=== PATIENT | female | born 1945 | race Caucasian/White ===

== ENCOUNTER 2017-10-22 23:06 | Inpatient (IN) | payer MEDICAID, MEDICARE ==
[~2017-10-22] VITALS: Ht 154.9 cm; Wt 45.4 kg
--- NOTE | 2017-10-22 23:28 | ED.ADGEN ---
Past History Past Medical History: Anxiety, Cancer, Dementia, Seizure, Other Adult General Chief Complaint Chief Complaint " I still hurt from when I fell..weeks ago... My Rt. hip, Lt. knee, Lt. elbow... and now I ve got a chest and head cold... the place I am at... everyone is sick... and they are peeing on the floor or shitting on the floor.. I am not kidding.." HPI HPI Patient is a 71 year old female transfer from [facility] who presents with hx. of increase in disruptive behaviors, mental status change, aggressive behavior- striking staff and other pt.s, pt. refusing meds, throws self on the floor, increased hallucinations, and "sundowning". Pt. had recent fall and complaints of injury to Lt elbow, Lt. knee and Rt hip. Pt also reports increased rhinorrhea and cough. Pt. has hx of chronic dementia, Lewy-body, leukemia- B-cell in remission, dysphagia, falls, seizure disorder, anxiety, deconditioning, chronic constipation, polyneuropathy, osteoporosis, GERD, Gait and mobility disfunction, COPD and parkinson's. Pt. Follows with Dr. Tobias for primary. Pt. POA is Daughter- Verena at [phone], or [phone]. Review of Systems Review of Systems Constitutional: Denies fever or chills [] Eyes: Denies change in visual acuity, redness, or eye pain [] HENT: Denies nasal congestion or sore throat [] Respiratory: Denies cough or shortness of breath [] Cardiovascular: No additional information not addressed in HPI [] GI: Denies abdominal pain, nausea, vomiting, bloody stools or diarrhea [] : Denies dysuria or hematuria [] Musculoskeletal: Lt shoulder, Rt shoulder, Lt hip, Lt knee joint pain [] Integument: Denies rash or skin lesions [] Neurologic: Denies headache, focal weakness or sensory changes [] Endocrine: Denies polyuria or polydipsia [] All other systems were reviewed and found to be within normal limits, except as documented in this note. Family History Family History Not currently available Current Medications Current Medications Current Medications Medications (Trade) Dose Ordered Sig/Wojciech Start Time Stop Time Status Last Admin Dose Admin Ceftriaxone Sodium 1 gm/ Sodium Chloride 50 ml @ 100 mls/hr 1X ONCE 10/23/17 01:30 10/23/17 01:59 DC 10/23/17 01:19 100 MLS/HR Ceftriaxone Sodium (Rocephin) 1 gm STK-MED ONCE 10/23/17 01:12 10/23/17 01:13 DC Sodium Chloride 50 ml @ As Directed STK-MED ONCE 10/23/17 01:12 10/23/17 01:13 DC Allergies Allergies Allergies Coded Allergies Type Severity Reaction Last Updated Verified No Known Drug Allergies 10/23/17 No Physical Exam Physical Exam Constitutional:in no acute distress, non-toxic appearance. [] HENT: Normocephalic, atraumatic, bilateral external ears normal, oropharynx moist, no oral exudates, nose normal. [] Eyes: PERRLA, EOMI, conjunctiva normal, no discharge. [] Neck: Normal range of motion, no tenderness, supple, no stridor. [] Cardiovascular:Heart rate regular rhythm, no murmur . PMI to Lt. Lungs & Thorax: Bilateral breath sounds equal apex with scattered wheezes on auscultation [] Abdomen: Bowel sounds normal, soft, no tenderness, no masses, no pulsatile masses. Scar. Skin: Warm, dry, no erythema, no rash. Poor turgor. Back: No tenderness, no CVA tenderness. [] Extremities: Shoulders, left knee tenderness, hips, tender to palpation, no cyanosis, no clubbing, ROM intact, no edema. [ Arthritic changes. Neurologic: Alert and oriented X 3, normal motor function, normal sensory function, no focal deficits noted. [] Psychologic: Affect anxious, judgement appears impaired, mood depressed, angry. Current Patient Data Vital Signs Vital Signs Date Time Temp Pulse Resp B/P (MAP) Pulse Ox O2 Delivery O2 Flow Rate FiO2 10/22/17 23:06 97.7 67 16 98 Room Air Lab Results Laboratory Tests Test 10/22/17 23:36 10/22/17 23:49 10/23/17 00:54 Urine Collection Type Unknown Urine Color Yellow Urine Clarity Cloudy Urine pH 6.5 Urine Specific [place] 1.020 Urine Protein 100 mg/dl (NEG-TRACE) Urine Glucose (UA) Neg mg/dL (NEG) Urine Ketones (Stick) Neg mg/dL (NEG) Urine Blood Mod (NEG) Urine Nitrite Pos (NEG) Urine Bilirubin Neg (NEG) Urine Urobilinogen Dipstick 0.2 mg/dL (0.2 mg/dL) Urine Leukocyte Esterase Large (NEG) Urine RBC 6-10 /HPF (0-2) Urine WBC Tntc /HPF (0-4) Urine Squamous Epithelial Cells Few /LPF Urine Bacteria Many /HPF (0-FEW) Urine Opiates Screen Neg (NEG) Urine Methadone Screen Neg (NEG) Urine Barbiturates Neg (NEG) Urine Phencyclidine Screen Neg (NEG) Urine Amphetamine/Methamphetamine Neg (NEG) Urine Benzodiazepines Screen Neg (NEG) Urine Cocaine Screen Neg (NEG) Urine Cannabinoids Screen Neg (NEG) Urine Ethyl Alcohol Neg (NEG) Influenza Type A (Rapid) Negative (NEGATIVE) Influenza Type B (Rapid) Negative (NEGATIVE) Group A Streptococcus Rapid Negative (NEGATIVE) White Blood Count 15.0 x10^3/uL (4.0-11.0) H Red Blood Count 2.88 x10^6/uL (3.50-5.40) L Hemoglobin 9.7 g/dL (12.0-15.5) L Hematocrit 28.5 % (36.0-47.0) L Mean Corpuscular Volume 99 fL (79-100) Mean Corpuscular Hemoglobin 34 pg (25-35) Mean Corpuscular Hemoglobin Concent 34 g/dL (31-37) Red Cell Distribution Width 15.6 % (11.5-14.5) H Platelet Count 357 x10^3/uL (140-400) Neutrophils (%) (Auto) 18 % (31-73) L Lymphocytes (%) (Auto) 65 % (24-48) H Monocytes (%) (Auto) 15 % (0-9) H Eosinophils (%) (Auto) 1 % (0-3) Basophils (%) (Auto) 1 % (0-3) Neutrophils # (Auto) 2.6 x10^3uL (1.8-7.7) Lymphocytes # (Auto) 9.7 x10^3/uL (1.0-4.8) H Monocytes # (Auto) 2.2 x10^3/uL (0.0-1.1) H Eosinophils # (Auto) 0.2 x10^3/uL (0.0-0.7) Basophils # (Auto) 0.2 x10^3/uL (0.0-0.2) Segmented Neutrophils % 12 % (35-66) L Band Neutrophils % 1 % (0-9) Lymphocytes % 74 % (24-48) H Monocytes % 11 % (0-10) H Basophils % 2 % (0-3) Platelet Estimate Adequate (ADEQUATE) Prothrombin Time 10.4 SEC (9.4-11.4) Prothrombin Time INR 1.0 (0.9-1.1) PTT 25 SEC (23-33) Sodium Level 134 mmol/L (136-145) L Potassium Level 4.1 mmol/L (3.5-5.1) Chloride Level 100 mmol/L (98-107) Carbon Dioxide Level 27 mmol/L (21-32) Anion Gap 7 (6-14) Blood Urea Nitrogen 15 mg/dL (7-20) Creatinine 0.7 mg/dL (0.6-1.0) Estimated GFR (Cockcroft-Gault) 82.5 Glucose Level 99 mg/dL (70-99) Calcium Level 8.9 mg/dL (8.5-10.1) Magnesium Level 2.0 mg/dL (1.8-2.4) Total Bilirubin 0.2 mg/dL (0.2-1.0) Direct Bilirubin 0.1 mg/dL (0.0-0.2) Aspartate Amino Transferase (AST) 36 U/L (15-37) Alanine Aminotransferase (ALT) 30 U/L (14-59) Alkaline Phosphatase 72 U/L (46-116) Ammonia < 10 mcmol/L (11-34) L Creatine Kinase 205 U/L (26-192) H Creatine Kinase MB (Mass) 5.2 ng/mL (0.0-3.6) H Creatine Kinase MB Relative Index 2.5 % (0-4) Troponin I Quantitative < 0.017 ng/mL (0-0.055) UD-Ekg-L-Type Natriuretic Peptide 586 pg/mL (0-124) H Total Protein 8.0 g/dL (6.4-8.2) Albumin 2.9 g/dL (3.4-5.0) L EKG EKG I interpretation of EKG shows a sinus rhythm at 73 bpm. Does have occasional PVC and PAC.[] Radiology/Procedures Radiology/Procedures I interpretation of chest x-ray and shoulder left elbow and left knee and pelvis showed degenerative joint changes, but no obvious fracture dislocation COPD changes on chest x-ray. []CT of head shows no shift, mass, edema, bleed, or fracture. Does have small vessel disease changes and atrophy Course & Med Decision Making Course & Med Decision Making Pertinent Labs and Imaging studies reviewed. (See chart for details). Does presentation, testing and treatment plan with Dr. Avalos. Will follow medical issues. Admit to Dr. Barrera. - [facility]. [] Final Impression Final Impression 1. Mental Status change 2. Parkinson's 3. Dementia - Lewy Body 4. Aggressive Behavior 5. Urinary tract infection 6. Leukocytosis 7. Anemia Problems: Dragon Disclaimer Dragon Disclaimer This electronic medical record was generated, in whole or in part, using a voice recognition dictation system. MARTINE LOPEZ MD Oct 22, 2017 23:28
--- NOTE | 2017-10-23 00:09 | EKG ---
[address] [address] Test Date: 2017-10-23 Test Time: 00:00:52 Pat Name: QUINTIN STALLINGS Department: Room: Gender: F Keypuncher: ANISHA : 1945 Requested By: MARTINE LOPEZ Order Number: [id number] Reading MD: Jacky Perez MD Measurements Intervals [place] Rate: 73 P: -4 MI: 178 QRS: 62 QRSD: 76 T: 54 QT: 366 QTc: 407 Interpretive Statements SINUS RHYTHM PVC Electronically Signed On 10-29-2017 14:12:55 ORACLE DBA by Jacky Perez MD
[2017-10-23] MEDS ORDERED: SENN1TAB15 PO (00:26)
[2017-10-23] MEDS ORDERED: OXYC5TAB95 PO ×2 (00:26)
[2017-10-23] MEDS ORDERED: KETO5DRO72 EACHEYE (00:26)
[2017-10-23] MEDS ORDERED: CYAN10005 PO (00:26)
[2017-10-23] MEDS ORDERED: CLON0.5T3 PO ×2 (00:26)
[2017-10-23] MEDS ORDERED: NALO25TA PO (00:26)
[2017-10-23] MEDS ORDERED: CARB1TAB47 PO (00:26)
[2017-10-23] MEDS ORDERED: CALC1TAB75 PO (00:26)
[2017-10-23] MEDS ORDERED: PANT40TA5 PO (00:26)
[2017-10-23] MEDS ORDERED: ASPI-630 PO (00:26)
[2017-10-23] MEDS ORDERED: QUET50TA5 PO (00:26)
[2017-10-23] MEDS ORDERED: ACET500T68 PO (00:26)
[2017-10-23] MEDS ORDERED: BUDE10.2 IH (00:26)
[2017-10-23] MEDS ORDERED: DICL100G18 TP (00:26)
[2017-10-23] MEDS ORDERED: RISE35TA3 PO (00:26)
[2017-10-23] MEDS ORDERED: LEVE500T6 PO (00:26)
[2017-10-23] MEDS ORDERED: ONDA4TAB11 PO (00:26)
[2017-10-23] MEDS ORDERED: DONE5TAB7 PO (00:26)
[2017-10-23] MEDS ORDERED: QUET25TA5 PO ×2 (00:26)
[2017-10-23] MEDS ORDERED: DULO30CA2 PO (00:26)
[2017-10-23] MEDS ORDERED: PREG50CA PO (00:26)
[2017-10-23] MEDS ORDERED: LORA2VIA IM (00:26)
[2017-10-23] MEDS ORDERED: ENTA200T2 PO (00:26)
[2017-10-23 00:32] LABS: BARBITURATES NEG (NEG); BENZODIAZEPINES NEG (NEG); CANNABINOIDS NEG (NEG); COCAINE NEG (NEG); METHADONE NEG (NEG); OPIATES NEG (NEG); PHENCYCLIDINE NEG (NEG)
[2017-10-23 00:35] LABS: AMPHETAMINE/METHAMPHETAMINE NEG (NEG)
[2017-10-23 00:38] LABS: BACTERIA,URINE MANY /HPF (0-FEW); BILIRUBIN,URINE NEG (NEG); CLARITY,URINE CLOUDY; COLOR,URINE YELLOW; GLUCOSE,URINE NEG (NEG); NITRITE,URINE POS (NEG); SQUAMOUS EPITHELIAL CELL,UR FEW /LPF; UROBILINOGEN,URINE 0.2 mg/dL (0.2 mg/dL); WBC,URINE TNTC /HPF (0-4)
[2017-10-23 00:46] LABS: INFLUENZA A PATIENT NEGATIVE (NEGATIVE); INFLUENZA B PATIENT NEGATIVE (NEGATIVE)
[2017-10-23] MEDS ORDERED: cefTRIAXone SODIUM 1 GM VIAL IV ONE (01:12)
[2017-10-23] MEDS ORDERED: IV NORMAL SALINE 50ML 50 ML ONE (01:12)
[2017-10-23 01:22] LABS: BASO # 0.2 x10^3/uL (0.0-0.2); BASO % 1 % (0-3); EOS # 0.2 x10^3/uL (0.0-0.7); EOS % 1 % (0-3); HEMATOCRIT 28.5 % (36.0-47.0); HEMOGLOBIN 9.7 g/dL (12.0-15.5); LYMPH # 9.7 x10^3/uL (1.0-4.8); LYMPH % 65 % (24-48); MEAN CORPUSCULAR HEMOGLOBIN 34 pg (25-35); MEAN CORPUSCULAR HGB CONC 34 g/dL (31-37); MEAN CORPUSCULAR VOLUME 99 fL (79-100); MONO # 2.2 x10^3/uL (0.0-1.1); MONO % 15 % (0-9); NEUT # 2.6 x10^3uL (1.8-7.7); NEUT % 18 % (31-73); PLATELET COUNT 357 x10^3/uL (140-400); RED BLOOD COUNT 2.88 x10^6/uL (3.50-5.40); RED CELL DISTRIBUTION WIDTH 15.6 % (11.5-14.5)
--- NOTE | 2017-10-23 01:32 | RAD ---
CT scan of the head without contrast 10/23/2017 Clinical History: Fall with head trauma. Technique: Unenhanced, contiguous, 5 mm axial sections were obtained through the head. One or more of the following individualized dose reduction techniques were utilized for this study: 1. Automated exposure control. 2. Adjustment of the mA and/or kV according to patient size. 3. Use of iterative reconstruction technique. Findings: No previous imaging studies are available for comparison. There is generalized parenchymal atrophy. Areas of decreased attenuation are seen within the periventricular and subcortical white matter of both cerebral hemispheres consistent with areas of small vessel ischemic disease. No acute parenchymal abnormality is seen. No extra-axial fluid collection is noted. No skull fracture is seen. Impression: No acute intracranial abnormality is seen. CT scan of the cervical spine without contrast 10/23/2017 Clinical history: Fall with neck injury. Technique: Unenhanced, contiguous, 0.625 mm axial sections were obtained through the cervical spine. Axial, coronal and sagittal reconstructed images were obtained. One or more of the following individualized dose reduction techniques were utilized for this study: 1. Automated exposure control. 2. Adjustment of the mA and/or kV according to patient size. 3. Use of iterative reconstruction technique. Findings: Sagittal and coronal reconstructed images demonstrate minimal lateral curvature of the cervical spine convex to the left. There is slight reversal of the normal cervical lordosis. Degenerative changes consisting of varying degrees of disc space narrowing, vertebral endplate sclerosis and mild anterior and posterior vertebral body osteophyte formation are seen throughout the cervical disc spaces. No fracture or subluxation of the cervical vertebrae is seen. Degenerative changes are seen involving the uncovertebral and facet joints throughout the cervical disc spaces. Impression: No fracture or subluxation of the cervical vertebra is identified. Electronically signed by: Js La MD (10/23/2017 1:29 AM) [facility]
[2017-10-23 01:46] LABS: CALCIUM 8.9 mg/dL (8.5-10.1); CREATININE 0.7 mg/dL (0.6-1.0); GFR 82.5; POTASSIUM 4.1 mmol/L (3.5-5.1)
[2017-10-23 01:57] LABS: % BANDS 1 % (0-9); % BASOS 2 % (0-3); % LYMPHS 74 % (24-48); % MONOS 11 % (0-10); % SEGS 12 % (35-66)
[2017-10-23 01:58] LABS: PLT ESTIMATE ADEQUATE (ADEQUATE)
[2017-10-23 03:15] VITALS: BP 148/75
[2017-10-23] MEDS ORDERED: METHYL SALICYLATE/MENTHOL TOPICAL OINTMENT 29GM TUBE. TP PRN (03:15)
[2017-10-23] MEDS ORDERED: MAGNESIUM HYDROXIDE 2,400 MG/30 ML ORAL.SUSP. PO PRN (03:15)
[2017-10-23] MEDS ORDERED: ACETAMINOPHEN 325 MG TABLET PO PRN (03:15)
[2017-10-23] MEDS ORDERED: MAG HYDROX/AL HYDROX/SIMETH 30 ML ORAL.SUSP PO PRN (03:15)
[2017-10-23] MEDS ORDERED: clonazePAM 0.5 MG TABLET PO PRN (03:30)
[2017-10-23 03:58] LABS: ALBUMIN 2.9 g/dL (3.4-5.0); TOTAL BILIRUBIN 0.2 mg/dL (0.2-1.0)
[2017-10-23 05:19] LABS: DIRECT BILIRUBIN 0.1 mg/dL (0.0-0.2)
[2017-10-23 06:14] VITALS: BP 148/75
--- NOTE | 2017-10-23 07:14 | RAD ---
Indication: Bilateral hip pain, greater on the right. Fall. Technique: AP pelvis and lateral view of each hip are submitted for review. No comparison is available. Findings: There is no pelvic fracture. There is no fracture or dislocation of either hip. Impression: Negative for fracture.
--- NOTE | 2017-10-23 07:18 | RAD ---
Indication: Pain after a fall. Technique: Bilateral shoulder series contains 3 views. 2 views of each of the shoulders are with large [id number]. Findings: There is no fracture or dislocation. There is no osseous lesion. Impression: Negative for fracture.
--- NOTE | 2017-10-23 07:19 | RAD ---
Indication: Elbow pain after a fall. Technique: 2 views of the left elbow are submitted for review. No comparison is available. Findings: There is no fracture or dislocation. There is no joint effusion/displacement of fat pads. Impression: Negative for fracture
--- NOTE | 2017-10-23 07:19 | RAD ---
Indication: Knee pain after a fall. Technique: 3 views of the left knee are submitted for review. No comparison is available. Findings: There is no fracture or dislocation. There is no joint effusion or soft tissue swelling. Impression: Negative for fracture.
--- NOTE | 2017-10-23 07:21 | RAD ---
Indication: Fall, pain. Technique: Upright portable chest radiograph was obtained. No comparison is available. Findings: The lungs are clear. There is a calcified granuloma on the right. Heart is upper limits of normal in size. There is no heart failure. There is minimal atheromatous disease in the thoracic aorta. Impression: No acute thoracic findings.
[2017-10-23] MEDS ORDERED: DICLOFENAC SODIUM 1% TOPICAL GEL 100GM TUBE. TP PRN (08:30)
[2017-10-23] MEDS ORDERED: NALOXEGOL OXALATE 25 MG TABLET. PO PRN (08:30)
[2017-10-23] MEDS ORDERED: oxyCODONE IR 5 MG TABLET PO PRN (08:30)
[2017-10-23] MEDS ORDERED: ACETAMINOPHEN 500 MG TABLET PO PRN (08:30)
[2017-10-23] MEDS ORDERED: KETOROLAC TROMETHAMINE 0.5% OPHTH SOLUTION 3ML BOTTLE. OU PRN ×2 (08:45→14:36)
[2017-10-23] MEDS ORDERED: ONDANSETRON ODT 4 MG TAB.RAPDIS PO PRN (08:45)
[2017-10-23] MEDS: SENNOSIDES/DOCUSATE 8.6/50MG TABLET. PO SCH ×3 (09:00→20:40)
[2017-10-23] MEDS ORDERED: NON FORMULARY ITEM (Budesonide/Formoterol Fumarate (Symbicort 160-4.5 Mcg Inhaler) 2 PUFF) IH SCH (09:00)
[2017-10-23] MEDS: CARBIDOPA/LEVODOPA 25/100MG TABLET PO SCH ×5 (09:00→22:15)
[2017-10-23] MEDS: ENTACAPONE 200 MG TABLET PO SCH ×5 (09:00→22:14)
[2017-10-23] MEDS: PREGABALIN 50 MG CAPSULE PO SCH ×4 (09:00→21:00)
[2017-10-23 09:32] LABS: BASO # 0.1 x10^3/uL (0.0-0.2); BASO % 1 % (0-3); EOS # 0.3 x10^3/uL (0.0-0.7); EOS % 2 % (0-3); HEMATOCRIT 30.1 % (36.0-47.0); HEMOGLOBIN 10.1 g/dL (12.0-15.5); LYMPH # 7.5 x10^3/uL (1.0-4.8); LYMPH % 60 % (24-48); MEAN CORPUSCULAR HEMOGLOBIN 33 pg (25-35); MEAN CORPUSCULAR HGB CONC 34 g/dL (31-37); MEAN CORPUSCULAR VOLUME 99 fL (79-100); MONO # 2.1 x10^3/uL (0.0-1.1); MONO % 17 % (0-9); NEUT # 2.5 x10^3uL (1.8-7.7); NEUT % 20 % (31-73); PLATELET COUNT 341 x10^3/uL (140-400); RED BLOOD COUNT 3.05 x10^6/uL (3.50-5.40); RED CELL DISTRIBUTION WIDTH 15.6 % (11.5-14.5); WHITE BLOOD COUNT 12.5 x10^3/uL (4.0-11.0)
[2017-10-23 09:51] LABS: ALBUMIN 2.7 g/dL (3.4-5.0); ALBUMIN/GLOBULIN RATIO 0.5 (1.0-1.7); CALCIUM 9.1 mg/dL (8.5-10.1); CREATININE 0.8 mg/dL (0.6-1.0); GFR 70.7; POTASSIUM 4.1 mmol/L (3.5-5.1); TOTAL BILIRUBIN 0.2 mg/dL (0.2-1.0); TOTAL PROTEIN 7.7 g/dL (6.4-8.2)
[2017-10-23] MEDS ORDERED: ALBUTEROL SULFATE 2.5 MG/3 ML NEBU. ONE (10:10)
[2017-10-23] MEDS ORDERED: BUDESONIDE 0.5 MG/2 ML NEBU ONE (10:10)
[2017-10-23] MEDS: levETIRAcetam 500 MG TABLET PO SCH ×2 (11:42→20:41)
[2017-10-23] MEDS: SMZ/TMP 800/160MG TABLET. PO SCH ×3 (11:42→22:13)
[2017-10-23] MEDS: QUEtiapine 25 MG TABLET. PO SCH ×2 (11:43→18:00)
[2017-10-23] MEDS: CYANOCOBALAMIN (VITAMIN B-12) 1,000 MCG TABLET. PO SCH (11:43)
[2017-10-23] MEDS: ASPIRIN 81 MG TAB.CHEW PO SCH (11:43)
[2017-10-23] MEDS: PANTOPRAZOLE 40 MG TABLET. PO SCH ×3 (11:44→22:14)
[2017-10-23] MEDS: CALCIUM CARB/VIT D3 500/200 TABLET PO SCH (11:44)
[2017-10-23] MEDS: oxyCODONE IR 5 MG TABLET PO SCH ×2 (11:45→22:15)
[2017-10-23] MEDS: BUDESONIDE 0.5 MG/2 ML NEBU NEB SCH ×2 (12:00→20:00)
[2017-10-23] MEDS: ALBUTEROL SULFATE 2.5 MG/3 ML NEBU. NEB SCH ×2 (12:00→21:04)
[2017-10-23 16:23] VITALS: BP 110/54
[2017-10-23] MEDS ORDERED: traZODone 50 MG TABLET. PO PRN (19:15)
--- NOTE | 2017-10-23 20:03 | PDOC ---
Exam Note: Jermaine Note: Please also refer to the separate dictated note~for this date of service dictated separately.~Patient seen individually. Discussed the patient with Nursing staff reviewed the chart.~Reviewed interim history and current functioning. Reviewed vital signs,~Labs/ Radiology~and current medications noted below. Continue current treatment with the changes noted in the dictated addendum note Assessment: Vital Signs: Vital Signs Date Time Temp Pulse Resp B/P (MAP) Pulse Ox O2 Delivery O2 Flow Rate FiO2 10/23/17 16:23 98.6 84 16 110/54 (72) 99 10/23/17 13:11 Room Air Labs: Laboratory Tests Test 10/22/17 23:36 10/22/17 23:49 10/23/17 00:54 10/23/17 09:10 Urine Collection Type Unknown Urine Color Yellow Urine Clarity Cloudy Urine pH 6.5 Urine Specific [place] 1.020 Urine Protein 100 mg/dl (NEG-TRACE) Urine Glucose (UA) Neg mg/dL (NEG) Urine Ketones (Stick) Neg mg/dL (NEG) Urine Blood Mod (NEG) Urine Nitrite Pos (NEG) Urine Bilirubin Neg (NEG) Urine Urobilinogen Dipstick 0.2 mg/dL (0.2 mg/dL) Urine Leukocyte Esterase Large (NEG) Urine RBC 6-10 /HPF (0-2) Urine WBC Tntc /HPF (0-4) Urine Squamous Epithelial Cells Few /LPF Urine Bacteria Many /HPF (0-FEW) Urine Opiates Screen Neg (NEG) Urine Methadone Screen Neg (NEG) Urine Barbiturates Neg (NEG) Urine Phencyclidine Screen Neg (NEG) Urine Amphetamine/Methamphetamine Neg (NEG) Urine Benzodiazepines Screen Neg (NEG) Urine Cocaine Screen Neg (NEG) Urine Cannabinoids Screen Neg (NEG) Urine Ethyl Alcohol Neg (NEG) Influenza Type A (Rapid) Negative (NEGATIVE) Influenza Type B (Rapid) Negative (NEGATIVE) Group A Streptococcus Rapid Negative (NEGATIVE) White Blood Count 15.0 x10^3/uL (4.0-11.0) H 12.5 x10^3/uL (4.0-11.0) H Red Blood Count 2.88 x10^6/uL (3.50-5.40) L 3.05 x10^6/uL (3.50-5.40) L Hemoglobin 9.7 g/dL (12.0-15.5) L 10.1 g/dL (12.0-15.5) L Hematocrit 28.5 % (36.0-47.0) L 30.1 % (36.0-47.0) L Mean Corpuscular Volume 99 fL (79-100) 99 fL (79-100) Mean Corpuscular Hemoglobin 34 pg (25-35) 33 pg (25-35) Mean Corpuscular Hemoglobin Concent 34 g/dL (31-37) 34 g/dL (31-37) Red Cell Distribution Width 15.6 % (11.5-14.5) H 15.6 % (11.5-14.5) H Platelet Count 357 x10^3/uL (140-400) 341 x10^3/uL (140-400) Neutrophils (%) (Auto) 18 % (31-73) L 20 % (31-73) L Lymphocytes (%) (Auto) 65 % (24-48) H 60 % (24-48) H Monocytes (%) (Auto) 15 % (0-9) H 17 % (0-9) H Eosinophils (%) (Auto) 1 % (0-3) 2 % (0-3) Basophils (%) (Auto) 1 % (0-3) 1 % (0-3) Neutrophils # (Auto) 2.6 x10^3uL (1.8-7.7) 2.5 x10^3uL (1.8-7.7) Lymphocytes # (Auto) 9.7 x10^3/uL (1.0-4.8) H 7.5 x10^3/uL (1.0-4.8) H Monocytes # (Auto) 2.2 x10^3/uL (0.0-1.1) H 2.1 x10^3/uL (0.0-1.1) H Eosinophils # (Auto) 0.2 x10^3/uL (0.0-0.7) 0.3 x10^3/uL (0.0-0.7) Basophils # (Auto) 0.2 x10^3/uL (0.0-0.2) 0.1 x10^3/uL (0.0-0.2) Segmented Neutrophils % 12 % (35-66) L Band Neutrophils % 1 % (0-9) Lymphocytes % 74 % (24-48) H Monocytes % 11 % (0-10) H Basophils % 2 % (0-3) Platelet Estimate Adequate (ADEQUATE) Prothrombin Time 10.4 SEC (9.4-11.4) Prothrombin Time INR 1.0 (0.9-1.1) PTT 25 SEC (23-33) Sodium Level 134 mmol/L (136-145) L 138 mmol/L (136-145) Potassium Level 4.1 mmol/L (3.5-5.1) 4.1 mmol/L (3.5-5.1) Chloride Level 100 mmol/L (98-107) 103 mmol/L (98-107) Carbon Dioxide Level 27 mmol/L (21-32) 26 mmol/L (21-32) Anion Gap 7 (6-14) 9 (6-14) Blood Urea Nitrogen 15 mg/dL (7-20) 13 mg/dL (7-20) Creatinine 0.7 mg/dL (0.6-1.0) 0.8 mg/dL (0.6-1.0) Estimated GFR (Cockcroft-Gault) 82.5 70.7 Glucose Level 99 mg/dL (70-99) 110 mg/dL (70-99) H Calcium Level 8.9 mg/dL (8.5-10.1) 9.1 mg/dL (8.5-10.1) Magnesium Level 2.0 mg/dL (1.8-2.4) 2.0 mg/dL (1.8-2.4) Iron Level 45 ug/dL (50-170) L Total Iron Binding Capacity 279 ug/dL (250-450) Iron Saturation 16 % (15-34) Total Bilirubin 0.2 mg/dL (0.2-1.0) 0.2 mg/dL (0.2-1.0) Direct Bilirubin 0.1 mg/dL (0.0-0.2) Aspartate Amino Transferase (AST) 36 U/L (15-37) 31 U/L (15-37) Alanine Aminotransferase (ALT) 30 U/L (14-59) 26 U/L (14-59) Alkaline Phosphatase 72 U/L (46-116) 70 U/L (46-116) Ammonia < 10 mcmol/L (11-34) L Creatine Kinase 205 U/L (26-192) H Creatine Kinase MB (Mass) 5.2 ng/mL (0.0-3.6) H Creatine Kinase MB Relative Index 2.5 % (0-4) Troponin I Quantitative < 0.017 ng/mL (0-0.055) [id number]-Type Natriuretic Peptide 586 pg/mL (0-124) H Total Protein 8.0 g/dL (6.4-8.2) 7.7 g/dL (6.4-8.2) Albumin 2.9 g/dL (3.4-5.0) L 2.7 g/dL (3.4-5.0) L Triglycerides Level 57 mg/dL (0-150) Cholesterol Level 183 mg/dL (0-200) LDL Cholesterol, Calculated 112 mg/dL (0-100) H VLDL Cholesterol, Calculated 11 mg/dL (0-40) Non-HDL Cholesterol Calculated 123 mg/dL (0-129) HDL Cholesterol 60 mg/dL (40-60) Cholesterol/HDL Ratio 3.0 Vitamin B12 Level 640 pg/mL (247-911) 25-Hydroxy Vitamin D Total 18.6 ng/mL (30-100) L Thyroid Stimulating Hormone (TSH) 4.230 uIU/mL (0.358-3.740) BUN/Creatinine Ratio 16 (6-20) Albumin/Globulin Ratio 0.5 (1.0-1.7) L Current Medications: Meds: Current Medications Ceftriaxone Sodium 1 gm/ Sodium Chloride 50 ml @ 100 mls/hr 1X ONCE IV Last administered on 10/23/17t 01:19; Start 10/23/17 at 01:30; Stop 10/23/17 at 01 :59; Status DC Sodium Chloride 50 ml @ As Directed STK-MED ONCE .ROUTE ; Start 10/23/17 at 01: 12; Stop 10/23/17 at 01:13; Status DC Ceftriaxone Sodium (Rocephin) 1 gm STK-MED ONCE IV ; Start 10/23/17 at 01:12; Stop 10/23/17 at 01:13; Status DC Acetaminophen (Tylenol) 650 mg PRN Q6HRS PRN PO PAIN / TEMP; Start 10/23/17 at 03:15; Status Cancel Multi-Ingredient Ointment (Analgesic Horner) 1 ananth PRN QID PRN TP MUSCLE PAIN; Start 10/23/17 at 03:15 Al Hydroxide/Mg Hydroxide (Mylanta Plus Xs) 15 ml PRN AFTMEALHC PRN PO DYSPEPSIA; Start 10/23/17 at 03:15 Magnesium Hydroxide (Milk Of Magnesia) 2,400 mg PRN QHS PRN PO CONSTIPATION Last administered on 10/23/17 11:42; Start 10/23/17 at 03:15 Clonazepam (KlonoPIN) 0.25 mg PRN DAILY PRN PO ANXIETY / AGITATION; Start at 03:30 Clonazepam (KlonoPIN) 0.25 mg QHS PO ; Start 10/23/17 at 21:00 Donepezil HCl (Aricept) 5 mg QHS PO ; Start 10/23/17 at 21:00; Stop 10/23/17 at 21:00; Status DC Duloxetine HCl (Cymbalta) 30 mg QHS PO ; Start 10/23/17 at 21:00 Quetiapine Fumarate (SEROquel) 12.5 mg DAILY PO Last administered on 11:43; Start 10/23/17 at 09:00 Quetiapine Fumarate (SEROquel) 25 mg QPM PO ; Start 10/23/17 at 18:00 Quetiapine Fumarate (SEROquel) 50 mg QHS PO ; Start 10/23/17 at 21:00 Acetaminophen (Tylenol) 1,000 mg PRN Q8HRS PRN PO PAIN; Start 10/23/17 at 08: 30 Aspirin (Children'S Aspirin) 81 mg DAILY PO Last administered on 10/23/17 11: 43; Start 10/23/17 at 09:00 Cyanocobalamin (Vitamin B-12) 1,000 mcg DAILY PO Last administered on 11:43; Start 10/23/17 at 09:00 Diclofenac Sodium (Voltaren) 1 ananth TID PRN TP Knee Pain; Start 10/23/17 at 08: 30 Entacapone (Comtan) 200 mg TID PO Last administered on 10/23/17 15:12; Start 10/23/17 at 09:00 Levetiracetam (Keppra) 250 mg BID PO Last administered on 10/23/17 11:42; Start 10/23/17 at 09:00 Naloxegol (Movantik) 25 mg PRN DAILY PRN PO CONSTIPATION; Start 10/23/17 at 08 :30 Oxycodone HCl (Roxicodone) 2.5 mg BID PO Last administered on 10/23/17 11:45 ; Start 10/23/17 at 09:00 Oxycodone HCl (Roxicodone) 2.5 mg PRN Q6HRS PRN PO PAIN; Start 10/23/17 at 08: 30 Pantoprazole Sodium (Protonix) 40 mg BID PO Last administered on 10/23/17 11: 44; Start 10/23/17 at 09:00 Pregabalin (Lyrica) 50 mg TID PO Last administered on 10/23/17 15:12; Start 10/23/17 at 09:00 Senna/Docusate Sodium (Senna Plus) 1 tab BID PO ; Start 10/23/17 at 09:00 Non-Formulary Medication 2 puff BID IH ; Start 10/23/17 at 09:00; Status UNV Calcium/Vitamin D (Oscal D 500mg/ 200uts) 1 tab DAILY PO Last administered on 10/23/17 11:44; Start 10/23/17 at 09:00 Carbidopa/Levodopa (Sinemet 25/100) 2 tab TID PO Last administered on 15:12; Start 10/23/17 at 09:00 Ketorolac Tromethamine (Acular) 1 drop PRN QID PRN OU ITCHING; Start 10/23/17 at 08:45; Stop 10/23/17 at 14:36; Status DC Ondansetron HCl (Zofran Odt) 4 mg PRN Q8HRS PRN PO NAUSEA/VOMITING; Start at 08:45 Alendronate Sodium (Fosamax) 70 mg Q7D PO ; Start 10/28/17 at 06:00 Trimethoprim/ Sulfamethoxazole (Bactrim Ds) 1 tab BID PO Last administered on 10/23/17 11:42; Start 10/23/17 at 09:00 Albuterol Sulfate (Ventolin) 2.5 mg Q6HRS NEB ; Start 10/23/17 at 12:00 Budesonide (Pulmicort) 0.5 mg RTBID NEB ; Start 10/23/17 at 12:00 Albuterol Sulfate (Ventolin) 2.5 mg STK-MED ONCE .ROUTE Last administered on 10:15; Start 10/23/17 at 10:10; Stop 10/23/17 at 10:11; Status DC Budesonide (Pulmicort) 0.5 mg STK-MED ONCE .ROUTE Last administered on 10:15; Start 10/23/17 at 10:10; Stop 10/23/17 at 10:11; Status DC Ketorolac Tromethamine (Acular) 1 drop PRN QID PRN OU ITCHING; Start 10/23/17 at 14:36 Donepezil HCl (Aricept) 10 mg QHS PO ; Start 10/23/17 at 21:00 Trazodone HCl (Desyrel) 50 mg QHS PO ; Start 10/23/17 at 21:00 Trazodone HCl (Desyrel) 50 mg PRN QHS PRN PO insomnia; Start 10/23/17 at 19:15 Active Scripts Active Reported Voltaren (Diclofenac Sodium) 100 Gm Gel..gram. 4 Gm TP TID PRN Ondansetron Hcl 4 Mg Tablet 4 Mg PO PRN Q8HRS PRN Acetaminophen 500 Mg Tablet 1,000 Mg PO PRN Q8HRS PRN Oxycodone Hcl 5 Mg Tablet 2.5 Mg PO PRN Q6HRS PRN Ketorolac Tromethamine 5 Ml Drops 1 Drop EACHEYE QID PRN Lorazepam 2 Mg/1 Ml Vial 0.5 Mg IM PRN Q4HRS PRN Movantik (Naloxegol Oxalate) 25 Mg Tablet 25 Mg PO PRN DAILY PRN Clonazepam 0.5 Mg Tablet 0.25 Mg PO PRN DAILY PRN Donepezil Hcl 5 Mg Tablet 5 Mg PO QHS Seroquel (Quetiapine Fumarate) 25 Mg Tablet 25 Mg PO QPM Oxycodone Hcl 5 Mg Tablet 2.5 Mg PO BID Symbicort 160-4.5 Mcg Inhaler (Budesonide/Formoterol Fumarate) 10.2 Gm Hfa.aer.ad 2 Puff IH BID Seroquel (Quetiapine Fumarate) 50 Mg Tablet 50 Mg PO QHS Cymbalta (Duloxetine Hcl) 30 Mg Capsule.dr 30 Mg PO QHS Clonazepam 0.5 Mg Tablet 0.25 Mg PO QHS Lyrica (Pregabalin) 50 Mg Capsule 50 Mg PO TID Entacapone 200 Mg Tablet 200 Mg PO TID Carbidopa-Levo 25-100 Mg Odt (Carbidopa/Levodopa) 1 Each Tab.rapdis 2 Tab PO TID Senna-S Tablet (Sennosides/Docusate Sodium) 1 Each Tablet 1 Tab PO BID Pantoprazole Sodium 40 Mg Tablet.dr 40 Mg PO BID Levetiracetam 500 Mg Tablet 250 Mg PO BID Seroquel (Quetiapine Fumarate) 25 Mg Tablet 12.5 Mg PO DAILY Actonel (Risedronate Sodium) 35 Mg Tablet 35 Mg PO QMONDAY Vitamin B-12 (Cyanocobalamin (Vitamin B-12)) 1,000 Mcg Tablet 1,000 Mcg PO DAILY Calcium 600 + Vit D 200 Tablet (Calcium Carbonate/Vitamin D3) 1 Each Tablet 1 Tab PO DAILY Aspirin 81 Mg Tab.chew 81 Mg PO DAILY I have reviewed the current psychotropics carefully including drug interactions. Risk benefit ratio favors no change other than as noted in my dictated progress note. Diagnosis: Problems: (1) Psychiatric complaint (2) Anxiety disorder (3) Lewy body dementia with behavioral disturbance (4) Impulse control disorder JOSE A SCHREIBER MD Oct 23, 2017 20:02
[2017-10-23 20:13] LABS: THYROXINE 7.2 ug/dL (4.5-12.0)
[2017-10-23] MEDS: DONEPEZIL HCL 10 MG TABLET PO SCH ×2 (20:43→22:14)
[2017-10-23] MEDS: DULoxetine HCL 30 MG CAPSULE.DR PO SCH (20:48)
[2017-10-23] MEDS: traZODone 50 MG TABLET. PO SCH (21:00)
[2017-10-23] MEDS ORDERED: DONEPEZIL HCL 5 MG TABLET. PO SCH (21:00)
[2017-10-23] MEDS: QUEtiapine 50 MG TABLET. PO SCH (21:00)
--- NOTE | 2017-10-23 21:53 | HP ---
ADMIT DATE: 10/23/2017 PSYCHIATRIC ADMISSION HISTORY/EVALUATION This note covers elements not covered in my initial note of 10/23/2017. The patient was seen individually evening of 10/23/2017 for this evaluation. IDENTIFYING DATA: The patient is a 71-year-old female referred to us from [facility] by Dr. Tobias, primary care physician and Dr. Abreu, psychiatrist on account of escalating behaviors since her admission at the [facility]. She has been having sundowning symptom, exit seeking, aggressive towards staff, refusing medications, throwing herself on the floor, and having hallucinations. She was given intramuscular Ativan every night as she refused to take her scheduled psychotropics. She has been difficult to redirect, has failed outpatient psychiatric interventions with Dr. Abreu, referred for this inpatient stabilization for her Lewy body dementia with delusion, behavioral disturbance. CHIEF COMPLAINT: "I don't know when I came here. No, I don't know my name." The patient had a smile about her as she answered my initial introduction asking when she came here. HISTORY OF PRESENT ILLNESS: The patient has a history of dementia, Lewy body type. She was recently admitted to [facility] and since being there, she has been extremely agitated, psychotic as noted above. She has had sleep and appetite changes. No active suicidal or homicidal ideation, but behaviors have been deemed dangerous, unmanageable, had failed outpatient psychiatric interventions. No clear history of bipolar disorder. PAST PSYCHIATRIC HISTORY: As above. PAST MEDICAL HISTORY: Seizure disorder; leukemia, in remission; dysphagia, recurrent UTIs, and Parkinson's disease. DRUG ALLERGIES: Negative. CODE STATUS: DNR. Accu-Cheks, no. Diet, mechanical soft. CURRENT PSYCHOTROPICS: Seroquel 12.5 mg daily, Klonopin 0.25 mg at bedtime, Seroquel 50 mg at bedtime and 25 mg in the morning, Aricept 5 mg a day, Klonopin, and Ativan p.r.n. FAMILY HISTORY: Noncontributory. SOCIAL HISTORY: No history of alcohol, drug abuse, physical, sexual or elder abuse. She is not known to be a perpetrator. ASSETS: Supportive family. Reaction to hospitalization, the patient oblivious of this. MENTAL STATUS EXAMINATION: The patient is oriented to herself, said the year was 1916. Initially said she did not know her name, but in fact she does. Insight, judgment, recent memory is impaired. Language function intact. Attention span short. Mood and affect remain labile. She remains paranoid, since being on the unit. She picks and chooses what medication she takes. Earlier in the day, she was physically kicking at others around her. Slept just 1-3/4 hours previous evening. REVIEW OF SYSTEMS: Ambulation impaired. No CV, , pulmonary, eye, ENT system symptoms on review. IMPRESSION: Major neurocognitive disorder, Alzheimer, vascular with depression, delusion, behavioral disturbance; anxiety disorder, unspecified; impulse control disorder, unspecified; current urinary tract infection. Rest diagnoses as above. PLAN: Admit to geropsychiatry unit at [facility]. I will see the patient daily individually from a psychiatric standpoint. Medical followup per Dr. Horton/Dr. Infante. Continue current psychotropics, observe baseline, adjust further as clinically indicated. Treat the UTI. Increase Aricept to 10 mg a day. Start trazodone 50 mg at bedtime, may repeat x 1 p.r.n. insomnia. MAN Jesus SCHREIBER MD DR: HARI/annette JOB#: [id number] / [id number]
[2017-10-23] MEDS: clonazePAM 0.5 MG TABLET PO SCH (22:14)
[2017-10-24 03:11] LABS: HEMOGLOBIN A1C 5.3 % (4.8-5.6)
[2017-10-24] MEDS: ALBUTEROL SULFATE 2.5 MG/3 ML NEBU. NEB SCH ×3 (05:26→21:09)
[2017-10-24 06:09] VITALS: BP 117/64
[2017-10-24] MEDS: oxyCODONE IR 5 MG TABLET PO SCH ×2 (07:38→20:18)
[2017-10-24] MEDS: BUDESONIDE 0.5 MG/2 ML NEBU NEB SCH ×2 (10:02→21:09)
[2017-10-24] MEDS: SENNOSIDES/DOCUSATE 8.6/50MG TABLET. PO SCH ×2 (10:55→20:08)
[2017-10-24] MEDS: ASPIRIN 81 MG TAB.CHEW PO SCH (10:55)
[2017-10-24] MEDS: CYANOCOBALAMIN (VITAMIN B-12) 1,000 MCG TABLET. PO SCH (10:55)
[2017-10-24] MEDS: QUEtiapine 25 MG TABLET. PO SCH ×2 (10:55→17:02)
[2017-10-24] MEDS: CALCIUM CARB/VIT D3 500/200 TABLET PO SCH (10:57)
[2017-10-24] MEDS: levETIRAcetam 500 MG TABLET PO SCH (10:57)
[2017-10-24] MEDS: PREGABALIN 50 MG CAPSULE PO SCH ×3 (10:58→20:15)
[2017-10-24] MEDS: CARBIDOPA/LEVODOPA 25/100MG TABLET PO SCH ×2 (14:00→20:07)
[2017-10-24] MEDS: ENTACAPONE 200 MG TABLET PO SCH ×2 (15:22→20:14)
[2017-10-24 16:24] VITALS: BP 154/77
[2017-10-24] MEDS ORDERED: CHOLECALCIFEROL (VITAMIN D3) 50,000 UNIT CAPSULE PO SCH (16:30)
--- NOTE | 2017-10-24 17:15 | HP ---
ADMIT DATE: 10/23/2017 REASON FOR ADMISSION TO SENIOR BEHAVIORAL UNIT: This is a 71-year-old female who came from [facility] in [place], where her behaviors have been escalating since she was admitted, she was readmitted on 08/21/2017, original admission was 03/15/2017. The patient has been sundowning, exit seeking, aggressive towards the staff, refusing meds, throwing self on the floor, and hallucinating. IM Ativan has been tried. She has been difficult to redirect. CURRENT MEDICAL PROBLEMS: Lewy body dementia, leukemia in remission, dysphagia, recurrent falls, seizures, anxiety, and Parkinson's disease. MEDICATIONS: Reviewed and are available on the MAR. SOCIAL HISTORY: The patient resides in a nursing facility. She denies throwing herself on the floor. She does have some slight plain over her bladder. REVIEW OF SYSTEMS: Denies chest pain, shortness of breath, sore throat, fever. FAMILY HISTORY: Unknown. OBJECTIVE: VITAL SIGNS: Blood pressure 154/77, temperature 98.1, pulse 80, respirations 20, pulse ox 97% on room air. Height 61 inches, weight 100 pounds, BMI is 18.9. GENERAL: Very frail appearing 71-year-old patient speaks only slightly above a whisper. HEENT: Her hearing is normal. Her eyes are clear. Nose patent. Throat clear. NECK: Supple. LUNGS: Clear. CARDIOVASCULAR: Regular rhythm and rate. ABDOMEN: Soft, mild tenderness over the bladder. EXTREMITIES: Without edema. NEUROLOGIC: Cranial nerves, can follow directions. They appear to be intact. [employer] strength is equal. MUSCULOSKELETAL: Strength slightly weak in the lower extremities. She is confined to a wheelchair. LABORATORY DATA: WBC 12.5, hemoglobin 10.1, hematocrit 30.1. BUN is 13, creatinine 0.8. CK is 205. Her TSH is 4.230. Ammonia less than 10, iron slightly low at 45, her vitamin D is low. Flu was negative. Group A strep negative. RPR nonreactive. ASSESSMENT: 1. Lewy body dementia with behavior disturbance. 2. Underweight for body habitus. 3. Severe protein-calorie malnutrition with an albumin of 2.7. 4. Iron deficiency. 5. Urinary tract infection. Preliminary urine culture growing greater than two organisms, so smaller infection. PLAN: Treat her medical conditions, replace her vitamin D, place her on iron. We will go ahead and treat her for urinary tract infection as she is positive for nitrates, large amount of leukocyte esterase, and too numerous to count white cells plus she has an elevated white count. SONY MCBRIDE DO DR: MANUEL/annette JOB#: [id number] / [id number]
--- NOTE | 2017-10-24 20:04 | PDOC ---
Exam Note: Jermaine Note: Please also refer to the separate dictated note~for this date of service dictated separately.~Patient seen individually. Discussed the patient with Nursing staff reviewed the chart.~Reviewed interim history and current functioning. Reviewed vital signs,~Labs/ Radiology~and current medications noted below. Continue current treatment with the changes noted in the dictated addendum note Assessment: Vital Signs: Vital Signs Date Time Temp Pulse Resp B/P (MAP) Pulse Ox O2 Delivery O2 Flow Rate FiO2 10/24/17 16:24 98.1 80 20 154/77 (102) 97 10/24/17 10:03 Room Air I&O Intake and Output 10/24/17 07:00 Intake Total 840 ml Balance 840 ml Intake Oral 840 ml Current Medications: Meds: Current Medications Ceftriaxone Sodium 1 gm/ Sodium Chloride 50 ml @ 100 mls/hr 1X ONCE IV Last administered on 10/23/17 01:19; Start 10/23/17 at 01:30; Stop 10/23/17 at 01 :59; Status DC Sodium Chloride 50 ml @ As Directed STK-MED ONCE .ROUTE ; Start 10/23/17 at 01: 12; Stop 10/23/17 at 01:13; Status DC Ceftriaxone Sodium (Rocephin) 1 gm STK-MED ONCE IV ; Start 10/23/17 at 01:12; Stop 10/23/17 at 01:13; Status DC Acetaminophen (Tylenol) 650 mg PRN Q6HRS PRN PO PAIN / TEMP; Start 10/23/17 at 03:15; Status Cancel Multi-Ingredient Ointment (Analgesic [place]) 1 ananth PRN QID PRN TP MUSCLE PAIN; Start 10/23/17 at 03:15 Al Hydroxide/Mg Hydroxide (Mylanta Plus Xs) 15 ml PRN AFTMEALHC PRN PO DYSPEPSIA; Start 10/23/17 at 03:15 Magnesium Hydroxide (Milk Of Magnesia) 2,400 mg PRN QHS PRN PO CONSTIPATION Last administered on 10/23/17 11:42; Start 10/23/17 at 03:15 Clonazepam (KlonoPIN) 0.25 mg PRN DAILY PRN PO ANXIETY / AGITATION; Start at 03:30; Stop 10/24/17 at 11:12; Status DC Clonazepam (KlonoPIN) 0.25 mg QHS PO Last administered on 10/23/17 22:14; Start 10/23/17 at 21:00 Donepezil HCl (Aricept) 5 mg QHS PO ; Start 10/23/17 at 21:00; Stop 10/23/17 at 21:00; Status DC Duloxetine HCl (Cymbalta) 30 mg QHS PO Last administered on 10/23/17 20:48; Start 10/23/17 at 21:00 Quetiapine Fumarate (SEROquel) 12.5 mg DAILY PO Last administered on 10:55; Start 10/23/17 at 09:00 Quetiapine Fumarate (SEROquel) 25 mg QPM PO Last administered on 10/24/17 17: 02; Start 10/23/17 at 18:00 Quetiapine Fumarate (SEROquel) 50 mg QHS PO ; Start 10/23/17 at 21:00 Acetaminophen (Tylenol) 1,000 mg PRN Q8HRS PRN PO PAIN; Start 10/23/17 at 08: 30 Aspirin (Children'S Aspirin) 81 mg DAILY PO Last administered on 10/24/17 10: 55; Start 10/23/17 at 09:00 Cyanocobalamin (Vitamin B-12) 1,000 mcg DAILY PO Last administered on 10:55; Start 10/23/17 at 09:00 Diclofenac Sodium (Voltaren) 1 ananth TID PRN TP Knee Pain; Start 10/23/17 at 08: 30 Entacapone (Comtan) 200 mg TID PO Last administered on 10/24/17 15:22; Start 10/23/17 at 09:00 Levetiracetam (Keppra) 250 mg BID PO Last administered on 10/24/17 10:57; Start 10/23/17 at 09:00; Stop 10/24/17 at 11:00; Status DC Naloxegol (Movantik) 25 mg PRN DAILY PRN PO CONSTIPATION; Start 10/23/17 at 08 :30 Oxycodone HCl (Roxicodone) 2.5 mg BID PO Last administered on 10/24/17 07:38 ; Start 10/23/17 at 09:00 Oxycodone HCl (Roxicodone) 2.5 mg PRN Q6HRS PRN PO PAIN; Start 10/23/17 at 08: 30 Pantoprazole Sodium (Protonix) 40 mg BID PO Last administered on 10/23/17 22: 14; Start 10/23/17 at 09:00 Pregabalin (Lyrica) 50 mg TID PO Last administered on 10/24/17 15:23; Start 10/23/17 at 09:00 Senna/Docusate Sodium (Senna Plus) 1 tab BID PO Last administered on 10:55; Start 10/23/17 at 09:00 Non-Formulary Medication 2 puff BID IH ; Start 10/23/17 at 09:00; Status UNV Calcium/Vitamin D (Oscal D 500mg/ 200uts) 1 tab DAILY PO Last administered on 10/24/17 10:57; Start 10/23/17 at 09:00 Carbidopa/Levodopa (Sinemet 25/100) 2 tab TID PO Last administered on 22:15; Start 10/23/17 at 09:00 Ketorolac Tromethamine (Acular) 1 drop PRN QID PRN OU ITCHING; Start 10/23/17 at 08:45; Stop 10/23/17 at 14:36; Status DC Ondansetron HCl (Zofran Odt) 4 mg PRN Q8HRS PRN PO NAUSEA/VOMITING; Start at 08:45 Alendronate Sodium (Fosamax) 70 mg Q7D PO ; Start 10/28/17 at 06:00 Trimethoprim/ Sulfamethoxazole (Bactrim Ds) 1 tab BID PO Last administered on 10/23/17 22:13; Start 10/23/17 at 09:00 Albuterol Sulfate (Ventolin) 2.5 mg Q6HRS NEB Last administered on 10/24/17 10:02; Start 10/23/17 at 12:00 Budesonide (Pulmicort) 0.5 mg RTBID NEB Last administered on 10/24/17 10:02; Start 10/23/17 at 12:00 Albuterol Sulfate (Ventolin) 2.5 mg STK-MED ONCE .ROUTE Last administered on 10:15; Start 10/23/17 at 10:10; Stop 10/23/17 at 10:11; Status DC Budesonide (Pulmicort) 0.5 mg STK-MED ONCE .ROUTE Last administered on 10:15; Start 10/23/17 at 10:10; Stop 10/23/17 at 10:11; Status DC Ketorolac Tromethamine (Acular) 1 drop PRN QID PRN OU ITCHING; Start 10/23/17 at 14:36 Donepezil HCl (Aricept) 10 mg QHS PO Last administered on 10/23/17 22:14; Start 10/23/17 at 21:00 Trazodone HCl (Desyrel) 50 mg QHS PO ; Start 10/23/17 at 21:00 Trazodone HCl (Desyrel) 50 mg PRN QHS PRN PO insomnia; Start 10/23/17 at 19:15 Levetiracetam (Keppra) 250 mg BID PO ; Start 10/24/17 at 21:00 Divalproex Sodium (Depakote Er) 500 mg QHS PO ; Start 10/24/17 at 21:00 Prenat Multivit/ [place]/Iron/Folic Ac (Multivitamin ) 1 tab DAILY PO ; Start 10/25/17 at 09:00 Vitamin D (Vitamin D3) 50,000 unit WEEKLY PO Last administered on 10/24/17 17 :01; Start 10/24/17 at 16:30 Active Scripts Active Reported Voltaren (Diclofenac Sodium) 100 Gm Gel..gram. 4 Gm TP TID PRN Ondansetron Hcl 4 Mg Tablet 4 Mg PO PRN Q8HRS PRN Acetaminophen 500 Mg Tablet 1,000 Mg PO PRN Q8HRS PRN Oxycodone Hcl 5 Mg Tablet 2.5 Mg PO PRN Q6HRS PRN Ketorolac Tromethamine 5 Ml Drops 1 Drop EACHEYE QID PRN Lorazepam 2 Mg/1 Ml Vial 0.5 Mg IM PRN Q4HRS PRN Movantik (Naloxegol Oxalate) 25 Mg Tablet 25 Mg PO PRN DAILY PRN Clonazepam 0.5 Mg Tablet 0.25 Mg PO PRN DAILY PRN Donepezil Hcl 5 Mg Tablet 5 Mg PO QHS Seroquel (Quetiapine Fumarate) 25 Mg Tablet 25 Mg PO QPM Oxycodone Hcl 5 Mg Tablet 2.5 Mg PO BID Symbicort 160-4.5 Mcg Inhaler (Budesonide/Formoterol Fumarate) 10.2 Gm Hfa.aer.ad 2 Puff IH BID Seroquel (Quetiapine Fumarate) 50 Mg Tablet 50 Mg PO QHS Cymbalta (Duloxetine Hcl) 30 Mg Capsule.dr 30 Mg PO QHS Clonazepam 0.5 Mg Tablet 0.25 Mg PO QHS Lyrica (Pregabalin) 50 Mg Capsule 50 Mg PO TID Entacapone 200 Mg Tablet 200 Mg PO TID Carbidopa-Levo 25-100 Mg Odt (Carbidopa/Levodopa) 1 Each Tab.rapdis 2 Tab PO TID Senna-S Tablet (Sennosides/Docusate Sodium) 1 Each Tablet 1 Tab PO BID Pantoprazole Sodium 40 Mg Tablet.dr 40 Mg PO BID Levetiracetam 500 Mg Tablet 250 Mg PO BID Seroquel (Quetiapine Fumarate) 25 Mg Tablet 12.5 Mg PO DAILY Actonel (Risedronate Sodium) 35 Mg Tablet 35 Mg PO QMONDAY Vitamin B-12 (Cyanocobalamin (Vitamin B-12)) 1,000 Mcg Tablet 1,000 Mcg PO DAILY Calcium 600 + Vit D 200 Tablet (Calcium Carbonate/Vitamin D3) 1 Each Tablet 1 Tab PO DAILY Aspirin 81 Mg Tab.chew 81 Mg PO DAILY I have reviewed the current psychotropics carefully including drug interactions. Risk benefit ratio favors no change other than as noted in my dictated progress note. Diagnosis: Problems: (1) Psychiatric complaint (2) Anxiety disorder (3) Lewy body dementia with behavioral disturbance (4) Impulse control disorder JOSE A SCHREIBER MD Oct 24, 2017 20:04
[2017-10-24] MEDS: SMZ/TMP 800/160MG TABLET. PO SCH (20:07)
[2017-10-24] MEDS: traZODone 50 MG TABLET. PO SCH (20:07)
[2017-10-24] MEDS: QUEtiapine 50 MG TABLET. PO SCH (20:08)
[2017-10-24] MEDS: DULoxetine HCL 30 MG CAPSULE.DR PO SCH (20:08)
[2017-10-24] MEDS: DONEPEZIL HCL 10 MG TABLET PO SCH (20:08)
[2017-10-24] MEDS: PANTOPRAZOLE 40 MG TABLET. PO SCH (20:08)
[2017-10-24] MEDS: clonazePAM 0.5 MG TABLET PO SCH (20:15)
[2017-10-24] MEDS ORDERED: levETIRAcetam 250 MG TABLET PO SCH (21:00)
[2017-10-24] MEDS ORDERED: DIVALPROEX ER 500 MG TAB.ER.24H PO SCH (21:00)
[2017-10-25] MEDS ORDERED: 0.9 % SOD CHL for STERILE FIELD 10 ML DISP.SYRIN. IV ONE ×2 (05:30→05:45)
--- NOTE | 2017-10-25 05:33 | PDOC ---
PROGRESS NOTES Assessment 1. Altered mental status: Check CBC, CMP, troponin, EKG. Pt had several sedating medications last night, and RT reports pt was similar affect early yesterday morning. Monitor vitals q 1 hour. Start IV fluids, LR 500 mL bolus. Pt does not have any evidence of stroke. She moves her arms and legs equally well, there is no facial droop or asymmetry. 2. Hypotension: Suspect due to medications. Will need to adjust some of her nighttime meds before tomorrow. Will need close monitoring until pt more alert and BP improved, can transfer to [address] [place] [address] or ICU if need be. Problems: Plan of Care: see other orders Subjective Called by nurse, pt w/ BP of 70's/40's, only responsive to sternal rub. When I arrived, pt laying flat in bed. No distress. When I rub her sternum, she bats my hand away w/ both arms and says "ow, stop hurting me. leave me alone." Objective Vital Signs Date Time Temp Pulse Resp B/P (MAP) Pulse Ox O2 Delivery O2 Flow Rate FiO2 10/24/17 21:18 96 Room Air 10/24/17 16:24 98.1 80 20 154/77 (102) Intake and Output 10/25/17 06:59 Intake Total 420 ml Balance 420 ml Intake Oral 420 ml Abdomen: Soft, No tenderness Heart: Regular rate, No murmurs Extremities: No edema General: Other (Sedated) HEENT: Other (Dry MM) Lungs: Clear to auscultation, Normal air movement Neck: No JVD Neuro: Other (NO grossly abnormal findings; neuro exam is without focal abnormalities, though is limited by pt's ability to participate.) Skin: No rashes Review of Relevant I have reviewed the following items nahum (where applicable) has been applied. Labs Laboratory Tests Test 10/23/17 09:10 White Blood Count 12.5 x10^3/uL (4.0-11.0) Red Blood Count 3.05 x10^6/uL (3.50-5.40) Hemoglobin 10.1 g/dL (12.0-15.5) Hematocrit 30.1 % (36.0-47.0) Mean Corpuscular Volume 99 fL (79-100) Mean Corpuscular Hemoglobin 33 pg (25-35) Mean Corpuscular Hemoglobin Concent 34 g/dL (31-37) Red Cell Distribution Width 15.6 % (11.5-14.5) Platelet Count 341 x10^3/uL (140-400) Neutrophils (%) (Auto) 20 % (31-73) Lymphocytes (%) (Auto) 60 % (24-48) Monocytes (%) (Auto) 17 % (0-9) Eosinophils (%) (Auto) 2 % (0-3) Basophils (%) (Auto) 1 % (0-3) Neutrophils # (Auto) 2.5 x10^3uL (1.8-7.7) Lymphocytes # (Auto) 7.5 x10^3/uL (1.0-4.8) Monocytes # (Auto) 2.1 x10^3/uL (0.0-1.1) Eosinophils # (Auto) 0.3 x10^3/uL (0.0-0.7) Basophils # (Auto) 0.1 x10^3/uL (0.0-0.2) Sodium Level 138 mmol/L (136-145) Potassium Level 4.1 mmol/L (3.5-5.1) Chloride Level 103 mmol/L (98-107) Carbon Dioxide Level 26 mmol/L (21-32) Anion Gap 9 (6-14) Blood Urea Nitrogen 13 mg/dL (7-20) Creatinine 0.8 mg/dL (0.6-1.0) Estimated GFR (Cockcroft-Gault) 70.7 BUN/Creatinine Ratio 16 (6-20) Glucose Level 110 mg/dL (70-99) Calcium Level 9.1 mg/dL (8.5-10.1) Magnesium Level 2.0 mg/dL (1.8-2.4) Total Bilirubin 0.2 mg/dL (0.2-1.0) Aspartate Amino Transf (AST/SGOT) 31 U/L (15-37) Alanine Aminotransferase (ALT/SGPT) 26 U/L (14-59) Alkaline Phosphatase 70 U/L (46-116) Total Protein 7.7 g/dL (6.4-8.2) Albumin 2.7 g/dL (3.4-5.0) Albumin/Globulin Ratio 0.5 (1.0-1.7) Microbiology 10/22/17 Blood Culture - Preliminary, Resulted NO GROWTH AFTER 2 DAYS 10/22/17 Throat Screen - Preliminary, Resulted 10/22/17 Throat Culture - Preliminary, Resulted 10/23/17 Urine Culture - Preliminary, Resulted 10/23/17 Urine Culture Result 1 ([id number]) - Preliminary, Resulted Medications Current Medications Ceftriaxone Sodium 1 gm/ Sodium Chloride 50 ml @ 100 mls/hr 1X ONCE IV Last administered on 10/23/17 01:19; Start 10/23/17 at 01:30; Stop 10/23/17 at 01 :59; Status DC Sodium Chloride 50 ml @ As Directed STK-MED ONCE .ROUTE ; Start 10/23/17 at 01: 12; Stop 10/23/17 at 01:13; Status DC Ceftriaxone Sodium (Rocephin) 1 gm STK-MED ONCE IV ; Start 10/23/17 at 01:12; Stop 10/23/17 at 01:13; Status DC Acetaminophen (Tylenol) 650 mg PRN Q6HRS PRN PO PAIN / TEMP; Start 10/23/17 at 03:15; Status Cancel Multi-Ingredient Ointment (Analgesic [place]) 1 ananth PRN QID PRN TP MUSCLE PAIN; Start 10/23/17 at 03:15 Al Hydroxide/Mg Hydroxide (Mylanta Plus Xs) 15 ml PRN AFTMEALHC PRN PO DYSPEPSIA; Start 10/23/17 at 03:15 Magnesium Hydroxide (Milk Of Magnesia) 2,400 mg PRN QHS PRN PO CONSTIPATION Last administered on 10/23/17 11:42; Start 10/23/17 at 03:15 Clonazepam (KlonoPIN) 0.25 mg PRN DAILY PRN PO ANXIETY / AGITATION; Start at 03:30; Stop 10/24/17 at 11:12; Status DC Clonazepam (KlonoPIN) 0.25 mg QHS PO Last administered on 10/24/17 20:15; Start 10/23/17 at 21:00 Donepezil HCl (Aricept) 5 mg QHS PO ; Start 10/23/17 at 21:00; Stop 10/23/17 at 21:00; Status DC Duloxetine HCl (Cymbalta) 30 mg QHS PO Last administered on 10/24/17 20:08; Start 10/23/17 at 21:00 Quetiapine Fumarate (SEROquel) 12.5 mg DAILY PO Last administered on 10:55; Start 10/23/17 at 09:00 Quetiapine Fumarate (SEROquel) 25 mg QPM PO Last administered on 10/24/17 17: 02; Start 10/23/17 at 18:00 Quetiapine Fumarate (SEROquel) 50 mg QHS PO Last administered on 10/24/17 20: 08; Start 10/23/17 at 21:00 Acetaminophen (Tylenol) 1,000 mg PRN Q8HRS PRN PO PAIN; Start 10/23/17 at 08: 30 Aspirin (Children'S Aspirin) 81 mg DAILY PO Last administered on 10/24/17 10: 55; Start 10/23/17 at 09:00 Cyanocobalamin (Vitamin B-12) 1,000 mcg DAILY PO Last administered on 10:55; Start 10/23/17 at 09:00 Diclofenac Sodium (Voltaren) 1 ananth TID PRN TP Knee Pain; Start 10/23/17 at 08: 30 Entacapone (Comtan) 200 mg TID PO Last administered on 10/24/17 20:14; Start 10/23/17 at 09:00 Levetiracetam (Keppra) 250 mg BID PO Last administered on 10/24/17 10:57; Start 10/23/17 at 09:00; Stop 10/24/17 at 11:00; Status DC Naloxegol (Movantik) 25 mg PRN DAILY PRN PO CONSTIPATION; Start 10/23/17 at 08 :30 Oxycodone HCl (Roxicodone) 2.5 mg BID PO Last administered on 10/24/17 20:18 ; Start 10/23/17 at 09:00 Oxycodone HCl (Roxicodone) 2.5 mg PRN Q6HRS PRN PO PAIN; Start 10/23/17 at 08: 30 Pantoprazole Sodium (Protonix) 40 mg BID PO Last administered on 10/24/17 20: 08; Start 10/23/17 at 09:00 Pregabalin (Lyrica) 50 mg TID PO Last administered on 10/24/17 20:15; Start 10/23/17 at 09:00 Senna/Docusate Sodium (Senna Plus) 1 tab BID PO Last administered on 20:08; Start 10/23/17 at 09:00 Non-Formulary Medication 2 puff BID IH ; Start 10/23/17 at 09:00; Status UNV Calcium/Vitamin D (Oscal D 500mg/ 200uts) 1 tab DAILY PO Last administered on 10/24/17 10:57; Start 10/23/17 at 09:00 Carbidopa/Levodopa (Sinemet 25/100) 2 tab TID PO Last administered on 20:07; Start 10/23/17 at 09:00 Ketorolac Tromethamine (Acular) 1 drop PRN QID PRN OU ITCHING; Start 10/23/17 at 08:45; Stop 10/23/17 at 14:36; Status DC Ondansetron HCl (Zofran Odt) 4 mg PRN Q8HRS PRN PO NAUSEA/VOMITING; Start at 08:45 Alendronate Sodium (Fosamax) 70 mg Q7D PO ; Start 10/28/17 at 06:00 Trimethoprim/ Sulfamethoxazole (Bactrim Ds) 1 tab BID PO Last administered on 10/24/17 20:07; Start 10/23/17 at 09:00 Albuterol Sulfate (Ventolin) 2.5 mg Q6HRS NEB Last administered on 10/24/17 21:09; Start 10/23/17 at 12:00 Budesonide (Pulmicort) 0.5 mg RTBID NEB Last administered on 10/24/17 21:09; Start 10/23/17 at 12:00 Albuterol Sulfate (Ventolin) 2.5 mg STK-MED ONCE .ROUTE Last administered on 10:15; Start 10/23/17 at 10:10; Stop 10/23/17 at 10:11; Status DC Budesonide (Pulmicort) 0.5 mg STK-MED ONCE .ROUTE Last administered on 10:15; Start 10/23/17 at 10:10; Stop 10/23/17 at 10:11; Status DC Ketorolac Tromethamine (Acular) 1 drop PRN QID PRN OU ITCHING; Start 10/23/17 at 14:36 Donepezil HCl (Aricept) 10 mg QHS PO Last administered on 10/24/17 20:08; Start 10/23/17 at 21:00 Trazodone HCl (Desyrel) 50 mg QHS PO Last administered on 10/24/17 20:07; Start 10/23/17 at 21:00 Trazodone HCl (Desyrel) 50 mg PRN QHS PRN PO insomnia; Start 10/23/17 at 19:15 Levetiracetam (Keppra) 250 mg BID PO Last administered on 10/24/17 20:16; Start 10/24/17 at 21:00 Divalproex Sodium (Depakote Er) 500 mg QHS PO Last administered on 10/24/17 20:16; Start 10/24/17 at 21:00 Prenat Multivit/ [place]/Iron/Folic Ac (Multivitamin ) 1 tab DAILY PO ; Start 10/25/17 at 09:00 Vitamin D (Vitamin D3) 50,000 unit WEEKLY PO Last administered on 10/24/17 17 :01; Start 10/24/17 at 16:30 Active Scripts Active Reported Voltaren (Diclofenac Sodium) 100 Gm Gel..gram. 4 Gm TP TID PRN Ondansetron Hcl 4 Mg Tablet 4 Mg PO PRN Q8HRS PRN Acetaminophen 500 Mg Tablet 1,000 Mg PO PRN Q8HRS PRN Oxycodone Hcl 5 Mg Tablet 2.5 Mg PO PRN Q6HRS PRN Ketorolac Tromethamine 5 Ml Drops 1 Drop EACHEYE QID PRN Lorazepam 2 Mg/1 Ml Vial 0.5 Mg IM PRN Q4HRS PRN Movantik (Naloxegol Oxalate) 25 Mg Tablet 25 Mg PO PRN DAILY PRN Clonazepam 0.5 Mg Tablet 0.25 Mg PO PRN DAILY PRN Donepezil Hcl 5 Mg Tablet 5 Mg PO QHS Seroquel (Quetiapine Fumarate) 25 Mg Tablet 25 Mg PO QPM Oxycodone Hcl 5 Mg Tablet 2.5 Mg PO BID Symbicort 160-4.5 Mcg Inhaler (Budesonide/Formoterol Fumarate) 10.2 Gm Hfa.aer.ad 2 Puff IH BID Seroquel (Quetiapine Fumarate) 50 Mg Tablet 50 Mg PO QHS Cymbalta (Duloxetine Hcl) 30 Mg Capsule.dr 30 Mg PO QHS Clonazepam 0.5 Mg Tablet 0.25 Mg PO QHS Lyrica (Pregabalin) 50 Mg Capsule 50 Mg PO TID Entacapone 200 Mg Tablet 200 Mg PO TID Carbidopa-Levo 25-100 Mg Odt (Carbidopa/Levodopa) 1 Each Tab.rapdis 2 Tab PO TID Senna-S Tablet (Sennosides/Docusate Sodium) 1 Each Tablet 1 Tab PO BID Pantoprazole Sodium 40 Mg Tablet.dr 40 Mg PO BID Levetiracetam 500 Mg Tablet 250 Mg PO BID Seroquel (Quetiapine Fumarate) 25 Mg Tablet 12.5 Mg PO DAILY Actonel (Risedronate Sodium) 35 Mg Tablet 35 Mg PO QMONDAY Vitamin B-12 (Cyanocobalamin (Vitamin B-12)) 1,000 Mcg Tablet 1,000 Mcg PO DAILY Calcium 600 + Vit D 200 Tablet (Calcium Carbonate/Vitamin D3) 1 Each Tablet 1 Tab PO DAILY Aspirin 81 Mg Tab.chew 81 Mg PO DAILY Vitals/I & O Vital Sign - Last 24 Hours 10/24/17 10/24/17 10/24/17 10/24/17 06:09 07:38 09:40 10:02 Temp 97.7 Pulse 72 Resp 16 B/P (MAP) 117/64 (81) Pulse Ox 96 96 O2 Delivery Room Air Room Air Room Air 10/24/17 10/24/17 10/24/17 10/24/17 10:03 16:24 20:18 21:18 Temp 98.1 Pulse 80 Resp 20 B/P (MAP) 154/77 (102) Pulse Ox 96 97 97 96 O2 Delivery Room Air Room Air 10/24/17 21:18 Pulse Ox 96 O2 Delivery Room Air Intake and Output 10/24/17 10/24/17 10/25/17 14:59 22:59 06:59 Intake Total 60 ml 360 ml 0 ml Balance 60 ml 360 ml 0 ml JALEN SUNSHINE MD Oct 25, 2017 05:33
[2017-10-25 05:43] LABS: BASO # 0.1 x10^3/uL (0.0-0.2); BASO % 0 % (0-3); EOS # 0.3 x10^3/uL (0.0-0.7); EOS % 2 % (0-3); HEMATOCRIT 24.4 % (36.0-47.0); HEMOGLOBIN 8.4 g/dL (12.0-15.5); LYMPH # 11.9 x10^3/uL (1.0-4.8); LYMPH % 77 % (24-48); MEAN CORPUSCULAR HEMOGLOBIN 34 pg (25-35); MEAN CORPUSCULAR HGB CONC 35 g/dL (31-37); MEAN CORPUSCULAR VOLUME 98 fL (79-100); MONO # 1.8 x10^3/uL (0.0-1.1); MONO % 11 % (0-9); NEUT # 1.6 x10^3uL (1.8-7.7); NEUT % 10 % (31-73); PLATELET COUNT 288 x10^3/uL (140-400); RED BLOOD COUNT 2.49 x10^6/uL (3.50-5.40); RED CELL DISTRIBUTION WIDTH 15.2 % (11.5-14.5); WHITE BLOOD COUNT 15.6 x10^3/uL (4.0-11.0)
[2017-10-25] MEDS ORDERED: IV RINGERS SOLUTION,LACTATED 900 ML IV ONE (05:45)
[2017-10-25] MEDS ORDERED: ALEN70TA3 PO (05:54)
[2017-10-25 05:55] LABS: ALBUMIN 2.3 g/dL (3.4-5.0); ALBUMIN/GLOBULIN RATIO 0.6 (1.0-1.7); CALCIUM 8.6 mg/dL (8.5-10.1); GFR 54.7; POTASSIUM 4.9 mmol/L (3.5-5.1); TOTAL BILIRUBIN 0.2 mg/dL (0.2-1.0); TOTAL PROTEIN 6.2 g/dL (6.4-8.2)
[2017-10-25] MEDS ORDERED: ALBU1.25 NEB (05:55)
[2017-10-25] MEDS ORDERED: ALBU2.5V5 NEB (05:55)
[2017-10-25] MEDS ORDERED: CHOL-5 PO (05:57)
[2017-10-25] MEDS ORDERED: IV RINGERS SOLUTION,LACTATED 500 ML IV ONE (06:00)
[2017-10-25] MEDS ORDERED: IV NORMAL SALINE 500ML 500 ML IV ONE (06:00)
[2017-10-25] MEDS ORDERED: DIVA500T17 PO (06:00)
[2017-10-25 06:02] LABS: % BANDS 2 % (0-9); % LYMPHS 81 % (24-48); % MONOS 6 % (0-10); % SEGS 11 % (35-66); PLT ESTIMATE ADEQUATE (ADEQUATE)
[2017-10-25] MEDS ORDERED: MAG30ORA2 PO (06:02)
[2017-10-25] MEDS ORDERED: METH29OI TP (06:04)
[2017-10-25] MEDS ORDERED: MAGN2400 PO (06:05)
[2017-10-25] MEDS ORDERED: PREN1TAB58 PO (06:06)
[2017-10-25] MEDS ORDERED: SULF1TAB24 PO (06:09)
[2017-10-25] MEDS ORDERED: TRAZ50TA15 PO (06:11)
[2017-10-25] MEDS ORDERED: PRENATAL MULTIVITAMIN TABLET. PO SCH (09:00)
--- NOTE | 2017-10-25 18:55 | PDOC ---
Exam Note: Jermaine Note: Please also refer to the separate dictated note~for this date of service dictated separately.~Patient seen individually. Discussed the patient with Nursing staff reviewed the chart.~Reviewed interim history and current functioning. Reviewed vital signs,~Labs/ Radiology~and current medications noted below. Continue current treatment with the changes noted in the dictated addendum note Assessment: Vital Signs: Vital Signs Date Time Temp Pulse Resp B/P (MAP) Pulse Ox O2 Delivery O2 Flow Rate FiO2 10/24/17 21:18 96 Room Air 10/24/17 16:24 98.1 80 20 154/77 (102) I&O Intake and Output 10/25/17 07:00 Intake Total 420 ml Balance 420 ml Intake Oral 420 ml Labs: Laboratory Tests Test 10/25/17 05:30 White Blood Count 15.6 x10^3/uL (4.0-11.0) H Red Blood Count 2.49 x10^6/uL (3.50-5.40) L Hemoglobin 8.4 g/dL (12.0-15.5) L Hematocrit 24.4 % (36.0-47.0) L Mean Corpuscular Volume 98 fL (79-100) Mean Corpuscular Hemoglobin 34 pg (25-35) Mean Corpuscular Hemoglobin Concent 35 g/dL (31-37) Red Cell Distribution Width 15.2 % (11.5-14.5) H Platelet Count 288 x10^3/uL (140-400) Neutrophils (%) (Auto) 10 % (31-73) L Lymphocytes (%) (Auto) 77 % (24-48) H Monocytes (%) (Auto) 11 % (0-9) H Eosinophils (%) (Auto) 2 % (0-3) Basophils (%) (Auto) 0 % (0-3) Neutrophils # (Auto) 1.6 x10^3uL (1.8-7.7) L Lymphocytes # (Auto) 11.9 x10^3/uL (1.0-4.8) H Monocytes # (Auto) 1.8 x10^3/uL (0.0-1.1) H Eosinophils # (Auto) 0.3 x10^3/uL (0.0-0.7) Basophils # (Auto) 0.1 x10^3/uL (0.0-0.2) Segmented Neutrophils % 11 % (35-66) L Band Neutrophils % 2 % (0-9) Lymphocytes % 81 % (24-48) H Monocytes % 6 % (0-10) Platelet Estimate Adequate (ADEQUATE) Sodium Level 133 mmol/L (136-145) L Potassium Level 4.9 mmol/L (3.5-5.1) Chloride Level 99 mmol/L (98-107) Carbon Dioxide Level 27 mmol/L (21-32) Anion Gap 7 (6-14) Blood Urea Nitrogen 17 mg/dL (7-20) Creatinine 1.0 mg/dL (0.6-1.0) Estimated GFR (Cockcroft-Gault) 54.7 BUN/Creatinine Ratio 17 (6-20) Glucose Level 93 mg/dL (70-99) Lactic Acid Level 0.7 mmol/L (0.4-2.0) Calcium Level 8.6 mg/dL (8.5-10.1) Total Bilirubin 0.2 mg/dL (0.2-1.0) Aspartate Amino Transferase (AST) 25 U/L (15-37) Alanine Aminotransferase (ALT) 9 U/L (14-59) L Alkaline Phosphatase 65 U/L (46-116) Total Protein 6.2 g/dL (6.4-8.2) L Albumin 2.3 g/dL (3.4-5.0) L Albumin/Globulin Ratio 0.6 (1.0-1.7) L Current Medications: Meds: Current Medications Ceftriaxone Sodium 1 gm/ Sodium Chloride 50 ml @ 100 mls/hr 1X ONCE IV Last administered on 10/23/17t 01:19; Start 10/23/17 at 01:30; Stop 10/23/17 at 01 :59; Status DC Sodium Chloride 50 ml @ As Directed STK-MED ONCE .ROUTE ; Start 10/23/17 at 01: 12; Stop 10/23/17 at 01:13; Status DC Ceftriaxone Sodium (Rocephin) 1 gm STK-MED ONCE IV ; Start 10/23/17 at 01:12; Stop 10/23/17 at 01:13; Status DC Acetaminophen (Tylenol) 650 mg PRN Q6HRS PRN PO PAIN / TEMP; Start 10/23/17 at 03:15; Status Cancel Multi-Ingredient Ointment (Analgesic [place]) 1 brie PRN QID PRN TP MUSCLE PAIN; Start 10/23/17 at 03:15; Stop 10/25/17 at 06:29; Status DC Al Hydroxide/Mg Hydroxide (Mylanta Plus Xs) 15 ml PRN AFTMEALHC PRN PO DYSPEPSIA; Start 10/23/17 at 03:15; Stop 10/25/17 at 06:29; Status DC Magnesium Hydroxide (Milk Of Magnesia) 2,400 mg PRN QHS PRN PO CONSTIPATION Last administered on 10/23/17 11:42; Start 10/23/17 at 03:15; Stop 10/25/17 at 06:29; Status DC Clonazepam (KlonoPIN) 0.25 mg PRN DAILY PRN PO ANXIETY / AGITATION; Start at 03:30; Stop 10/24/17 at 11:12; Status DC Clonazepam (KlonoPIN) 0.25 mg QHS PO Last administered on 10/24/17 20:15; Start 10/23/17 at 21:00; Stop 10/25/17 at 06:29; Status DC Donepezil HCl (Aricept) 5 mg QHS PO ; Start 10/23/17 at 21:00; Stop 10/23/17 at 21:00; Status DC Duloxetine HCl (Cymbalta) 30 mg QHS PO Last administered on 10/24/17 20:08; Start 10/23/17 at 21:00; Stop 10/25/17 at 06:29; Status DC Quetiapine Fumarate (SEROquel) 12.5 mg DAILY PO Last administered on 10:55; Start 10/23/17 at 09:00; Stop 10/25/17 at 06:29; Status DC Quetiapine Fumarate (SEROquel) 25 mg QPM PO Last administered on 10/24/17 17: 02; Start 10/23/17 at 18:00; Stop 10/25/17 at 06:29; Status DC Quetiapine Fumarate (SEROquel) 50 mg QHS PO Last administered on 10/24/17 20: 08; Start 10/23/17 at 21:00; Stop 10/25/17 at 06:29; Status DC Acetaminophen (Tylenol) 1,000 mg PRN Q8HRS PRN PO PAIN; Start 10/23/17 at 08: 30; Stop 10/25/17 at 06:29; Status DC Aspirin (Children'S Aspirin) 81 mg DAILY PO Last administered on 10/24/17 10: 55; Start 10/23/17 at 09:00; Stop 10/25/17 at 06:29; Status DC Cyanocobalamin (Vitamin B-12) 1,000 mcg DAILY PO Last administered on 10:55; Start 10/23/17 at 09:00; Stop 10/25/17 at 06:29; Status DC Diclofenac Sodium (Voltaren) 1 brie TID PRN TP Knee Pain; Start 10/23/17 at 08: 30; Stop 10/25/17 at 06:29; Status DC Entacapone (Comtan) 200 mg TID PO Last administered on 10/24/17 20:14; Start 10/23/17 at 09:00; Stop 10/25/17 at 06:29; Status DC Levetiracetam (Keppra) 250 mg BID PO Last administered on 10/24/17 10:57; Start 10/23/17 at 09:00; Stop 10/24/17 at 11:00; Status DC Naloxegol (Movantik) 25 mg PRN DAILY PRN PO CONSTIPATION; Start 10/23/17 at 08 :30; Stop 10/25/17 at 06:29; Status DC Oxycodone HCl (Roxicodone) 2.5 mg BID PO Last administered on 10/24/17 20:18 ; Start 10/23/17 at 09:00; Stop 10/25/17 at 06:29; Status DC Oxycodone HCl (Roxicodone) 2.5 mg PRN Q6HRS PRN PO PAIN; Start 10/23/17 at 08: 30; Stop 10/25/17 at 06:29; Status DC Pantoprazole Sodium (Protonix) 40 mg BID PO Last administered on 10/24/17 20: 08; Start 10/23/17 at 09:00; Stop 10/25/17 at 06:29; Status DC Pregabalin (Lyrica) 50 mg TID PO Last administered on 10/24/17 20:15; Start 10/23/17 at 09:00; Stop 10/25/17 at 06:29; Status DC Senna/Docusate Sodium (Senna Plus) 1 tab BID PO Last administered on 20:08; Start 10/23/17 at 09:00; Stop 10/25/17 at 06:29; Status DC Non-Formulary Medication 2 puff BID IH ; Start 10/23/17 at 09:00; Status UNV Calcium/Vitamin D (Oscal D 500mg/ 200uts) 1 tab DAILY PO Last administered on 10/24/17 10:57; Start 10/23/17 at 09:00; Stop 10/25/17 at 06:29; Status DC Carbidopa/Levodopa (Sinemet 25/100) 2 tab TID PO Last administered on 20:07; Start 10/23/17 at 09:00; Stop 10/25/17 at 06:29; Status DC Ketorolac Tromethamine (Acular) 1 drop PRN QID PRN OU ITCHING; Start 10/23/17 at 08:45; Stop 10/23/17 at 14:36; Status DC Ondansetron HCl (Zofran Odt) 4 mg PRN Q8HRS PRN PO NAUSEA/VOMITING; Start at 08:45; Stop 10/25/17 at 06:29; Status DC Alendronate Sodium (Fosamax) 70 mg Q7D PO ; Start 10/28/17 at 06:00; Stop at 06:00; Status DC Trimethoprim/ Sulfamethoxazole (Bactrim Ds) 1 tab BID PO Last administered on 10/24/17 20:07; Start 10/23/17 at 09:00; Stop 10/25/17 at 06:29; Status DC Albuterol Sulfate (Ventolin) 2.5 mg Q6HRS NEB Last administered on 10/24/17 21:09; Start 10/23/17 at 12:00; Stop 10/25/17 at 06:29; Status DC Budesonide (Pulmicort) 0.5 mg RTBID NEB Last administered on 10/24/17 21:09; Start 10/23/17 at 12:00; Stop 10/25/17 at 06:29; Status DC Albuterol Sulfate (Ventolin) 2.5 mg STK-MED ONCE .ROUTE Last administered on 10:15; Start 10/23/17 at 10:10; Stop 10/23/17 at 10:11; Status DC Budesonide (Pulmicort) 0.5 mg STK-MED ONCE .ROUTE Last administered on 10:15; Start 10/23/17 at 10:10; Stop 10/23/17 at 10:11; Status DC Ketorolac Tromethamine (Acular) 1 drop PRN QID PRN OU ITCHING; Start 10/23/17 at 14:36; Stop 10/25/17 at 06:29; Status DC Donepezil HCl (Aricept) 10 mg QHS PO Last administered on 10/24/17 20:08; Start 10/23/17 at 21:00; Stop 10/25/17 at 06:29; Status DC Trazodone HCl (Desyrel) 50 mg QHS PO Last administered on 10/24/17 20:07; Start 10/23/17 at 21:00; Stop 10/25/17 at 06:29; Status DC Trazodone HCl (Desyrel) 50 mg PRN QHS PRN PO insomnia; Start 10/23/17 at 19:15 ; Stop 10/25/17 at 06:29; Status DC Levetiracetam (Keppra) 250 mg BID PO Last administered on 10/24/17 20:16; Start 10/24/17 at 21:00; Stop 10/25/17 at 06:29; Status DC Divalproex Sodium (Depakote Er) 500 mg QHS PO Last administered on 10/24/17 20:16; Start 10/24/17 at 21:00; Stop 10/25/17 at 06:29; Status DC Prenat Multivit/ [place]/Iron/Folic Ac (Multivitamin ) 1 tab DAILY PO ; Start 10/25/17 at 09:00; Stop 10/25/17 at 09:00; Status DC Vitamin D (Vitamin D3) 50,000 unit WEEKLY PO Last administered on 10/24/17 17 :01; Start 10/24/17 at 16:30; Stop 10/25/17 at 06:29; Status DC Sodium Chloride (NORMAL SALINE FLUSH for STERILE FIELD) 500 ml 1X ONCE IV ; Start 10/25/17 at 05:30; Stop 10/25/17 at 05:59; Status DC Sodium Chloride (NORMAL SALINE FLUSH for STERILE FIELD) 500 ml 1X ONCE IV ; Start 10/25/17 at 05:45; Stop 10/25/17 at 05:46; Status UNV Lactated Ringer's 900 ml @ 900 mls/hr 1X ONCE IV ; Start 10/25/17 at 05:45; Stop 10/25/17 at 06:44; Status Cancel Lactated Ringer's 500 ml @ 500 mls/hr Q1H ONCE IV ; Start 10/25/17 at 06:00; Stop 10/25/17 at 06:00; Status DC Sodium Chloride 500 ml @ 0 mls/hr 1X ONCE IV Last administered on 10/25/17t 05:58; Start 10/25/17 at 06:00; Stop 10/25/17 at 06:14; Status DC Active Scripts Active Reported Trazodone Hcl 50 Mg Tablet 50 Mg PO QHS Bactrim Ds Tablet (Sulfamethoxazole/Trimethoprim) 1 Each Tablet 1 Each PO BID Vitamins ( Vits W-Ca,Fe,Fa(<1MG)) 1 Each Tablet 1 Each PO DAILY Milk Of Magnesia (Magnesium Hydroxide) 2,400 Mg/10 Ml Oral.susp 2,400 Mg PO PRN QHS PRN Analgesic [place] (Methyl Salicylate/Menthol) 28 Gm Oint...g. 1 Brie TP PRN QID PRN Mag-Al Plus Xs Suspension (Mag Hydrox/Al Hydrox/Simeth) 30 Ml Oral.susp 15 Ml PO PRN AFTMEALHC PRN Divalproex Sodium Er (Divalproex Sodium) 500 Mg Tab.er.24h 500 Mg PO QHS Vitamin D3 (Cholecalciferol (Vitamin D3)) 10,000 Unit Tablet 50,000 Unit PO WEEKLY Albuterol Sulfate Neb Soln (Albuterol Sulfate) 2.5 Mg/3 Ml Vial.neb 2.5 Mg NEB Q6HRS Fosamax (Alendronate Sodium) 70 Mg Tablet 70 Mg PO WEEKLY Voltaren (Diclofenac Sodium) 100 Gm Gel..gram. 4 Gm TP TID PRN Ondansetron Hcl 4 Mg Tablet 4 Mg PO PRN Q8HRS PRN Acetaminophen 500 Mg Tablet 1,000 Mg PO PRN Q8HRS PRN Oxycodone Hcl 5 Mg Tablet 2.5 Mg PO PRN Q6HRS PRN Ketorolac Tromethamine 5 Ml Drops 1 Drop EACHEYE QID PRN Movantik (Naloxegol Oxalate) 25 Mg Tablet 25 Mg PO PRN DAILY PRN Donepezil Hcl 5 Mg Tablet 10 Mg PO QHS Seroquel (Quetiapine Fumarate) 25 Mg Tablet 25 Mg PO QPM Oxycodone Hcl 5 Mg Tablet 2.5 Mg PO BID Symbicort 160-4.5 Mcg Inhaler (Budesonide/Formoterol Fumarate) 10.2 Gm Hfa.aer.ad 2 Puff IH BID Seroquel (Quetiapine Fumarate) 50 Mg Tablet 50 Mg PO QHS Cymbalta (Duloxetine Hcl) 30 Mg Capsule.dr 30 Mg PO QHS Clonazepam 0.5 Mg Tablet 0.25 Mg PO QHS Lyrica (Pregabalin) 50 Mg Capsule 50 Mg PO TID Entacapone 200 Mg Tablet 200 Mg PO TID Carbidopa-Levo 25-100 Mg Odt (Carbidopa/Levodopa) 1 Each Tab.rapdis 2 Tab PO TID Senna-S Tablet (Sennosides/Docusate Sodium) 1 Each Tablet 1 Tab PO BID Pantoprazole Sodium 40 Mg Tablet.dr 40 Mg PO BID Levetiracetam 500 Mg Tablet 250 Mg PO BID Seroquel (Quetiapine Fumarate) 25 Mg Tablet 12.5 Mg PO DAILY Vitamin B-12 (Cyanocobalamin (Vitamin B-12)) 1,000 Mcg Tablet 1,000 Mcg PO DAILY Calcium 600 + Vit D 200 Tablet (Calcium Carbonate/Vitamin D3) 1 Each Tablet 1 Tab PO DAILY Aspirin 81 Mg Tab.chew 81 Mg PO DAILY I have reviewed the current psychotropics carefully including drug interactions. Risk benefit ratio favors no change other than as noted in my dictated progress note. Diagnosis: Problems: (1) Impulse control disorder (2) Lewy body dementia with behavioral disturbance (3) Anxiety disorder JOSE A SCHREIBER MD Oct 25, 2017 18:55
--- NOTE | 2017-10-26 07:31 | PN ---
DATE: 10/24/2017 This is a late entry for 10/24/2017 and covers elements not covered in my initial note of 10/24/2017. I met with the patient evening of 10/24/2017. The patient was also staffed with the entire treatment team morning of 10/24/2017. Reviewed her history. She is a former crack user, has been sober for about 1 year and was even having her children use crack 3 or 4 times a month. Reportedly, her daughter has bipolar disorder and is on lithium, Wellbutrin and methadone. REVIEW OF SYSTEMS: Ambulation impaired, in wheelchair. No CV, , pulmonary, eye system symptoms on review. Reliability poor. MENTAL STATUS EXAM: Oriented to herself. Insight, judgment, recent and remote memory, attention, concentration, fund of knowledge poor, consistent with her diagnosis as mentioned in my initial note. IMPRESSION: Major neurocognitive disorder, Lewy body with delusions, behavioral disturbance; bipolar 1 disorder, mixed with psychotic features; anxiety disorder, unspecified; impulse control disorder, unspecified; past history of polysubstance abuse. PLAN: Continue psychotropics as mentioned in my initial note. Start the Depakote ER 500 mg p.o. at bedtime for bipolar disorder. Check CBC, CMP, valproic acid level in 3 days. Rest unchanged from initial note. MAN Jesus SCHREIBER MD DR: HARI/annette JOB#: [id number] / [id number]
--- NOTE | 2017-10-26 21:16 | DS ---
DATE OF DISCHARGE: 10/25/2017 DISCHARGE SUMMARY/PSYCHIATRIC PROGRESS NOTE REASON FOR ADMISSION: Please refer to the admission history for details. Briefly, the patient is a 71-year-old female referred to us from [facility] by her primary care physician and psychiatrist, Dr. Felicia Abreu on account of worsening behavior, sundowning, exit seeking, aggressive towards staff, refusing medications, throwing herself on the floor and this is within the context of her dementia, Lewy body with delusion, behavioral disturbance and she had failed outpatient psychiatric interventions. SIGNIFICANT FINDINGS AND CLINICAL COURSE: Following admission, the patient was seen daily individually by myself, followed medically per Dr. Horton/Dr. Infante during her very brief hospitalization of just 2 days. She remained confused, somewhat resistive to taking her medications, demanding, verbally aggressive, abusive. At this stage, she had a change in her medical status and was transferred to the medical surgical floor/ICU per Dr. Horton. No active suicidal or homicidal ideation prior to discharge. Some adjustments were attempted in her psychotropics and at the time of discharge, she was on Seroquel 12.5 mg daily, Klonopin 0.25 mg at bedtime, Seroquel 50 mg at bedtime, 25 mg q. 6 p.m., Aricept 5 mg a day, Klonopin 0.25 mg daily p.r.n., Ativan p.r.n., Depakote ER 500 mg at bedtime. REVIEW OF SYSTEMS: Prior to discharge ambulation impaired in wheelchair. No CV, , pulmonary, eye, ENT system symptoms on review. MENTAL STATUS EXAM: Oriented to herself. Insight, judgment, recent and remote memory, attention, concentration, fund of knowledge poor, consistent with her diagnosis mentioned in my initial note. FINAL DIAGNOSES: Major neurocognitive disorder, Lewy body with delusion, depression, behavioral disturbance; anxiety disorder, unspecified; impulse control disorder, unspecified. Rest as above discharge. DISCHARGE MEDICATIONS: Please refer to the MRAD. DISCHARGE INSTRUCTIONS: Further psychiatric and medical followup on 1 [facility] Medical/Surgical floor. Time for discharge day management greater than 30 minutes. JOSE A SCHREIBER MD DR: HARI/annette JOB#: [id number] / [id number]
[2017-10-28] MEDS ORDERED: ALENDRONATE SODIUM 35 MG TABLET PO SCH (06:00)
== END 2017-10-25 06:15 | disposition short-term general hospital (02) | DRG 56 ==
LOC: ER 23:06 → GEROPSY 10-23 02:30
PROVIDERS: ADMIT Psychiatry & Neurology Psychiatry; ATTEND Psychiatry & Neurology Psychiatry
DX: G30.9 Alzheimer's disease, unspecified (principal); E43 Unspecified severe protein-calorie malnutrition; F01.51 Vascular dementia, unspecified severity, with behavioral disturbance; G31.83 Neurocognitive disorder with Lewy bodies; G40.909 Epilepsy, unspecified, not intractable, without status epilepticus; D64.9 Anemia, unspecified; C91.01 Acute lymphoblastic leukemia, in remission; F31.64 Bipolar disorder, current episode mixed, severe, with psychotic features; Z68.1 Body mass index [BMI] 19.9 or less, adult; F02.81 Dementia in other diseases classified elsewhere, unspecified severity, with behavioral disturbance; F05 Delirium due to known physiological condition; N39.0 Urinary tract infection, site not specified; J44.9 Chronic obstructive pulmonary disease, unspecified; K21.9 Gastro-esophageal reflux disease without esophagitis; E61.1 Iron deficiency; F41.9 Anxiety disorder, unspecified; F63.9 Impulse disorder, unspecified; K59.09 Other constipation; M81.0 Age-related osteoporosis without current pathological fracture; Z66 Do not resuscitate; Z79.899 Other long term (current) drug therapy; Z87.440 Personal history of urinary (tract) infections
CPT/HCPCS: 36415; 70450; 71010; 72125; 73030; 73070; 73521; 73562; 80048; 80053; 80061; 80076; 80177; 80307; 81001; 82140; 82306; 82553; 82607; 83036; 83540; 83550; 83605; 83735; 83880; 84436; 84443; 84480; 84484; 85007; 85025; 85610; 85730; 86593; 87040; 87070; 87086; 87804; 87880; 93005; 94640; 96365; 96366; J0696; J7040; J7613; J7626; 99285-25; G0479

== ENCOUNTER 2017-10-25 06:00 | Inpatient (IN) | payer MEDICARE ==
[2017-10-25] VITALS (7 sets, daily range): BP systolic 66–136; BP diastolic 35–60
[~2017-10-25 06:00] MED LIST: ACET500T68 PO; ALBU1.25 NEB; ALBU2.5V5 NEB; ALEN70TA3 PO; ASPI-630 PO; BUDE10.2 IH; CALC1TAB75 PO; CARB1TAB47 PO; CHOL-5 PO; CLON0.5T3 PO; CYAN10005 PO; DICL100G18 TP; DIVA500T17 PO; DONE5TAB7 PO; DULO30CA2 PO; ENTA200T2 PO; KETO5DRO72 EACHEYE; LEVE500T6 PO; LORA2VIA IM; NALO25TA PO; ONDA4TAB11 PO; OXYC5TAB95 PO; PANT40TA5 PO; PREG50CA PO; QUET25TA5 PO; QUET50TA5 PO; RISE35TA3 PO; SENN1TAB15 PO
[2017-10-25] MEDS ORDERED: MAG30ORA2 PO (06:02)
[2017-10-25] MEDS ORDERED: METH29OI TP (06:04)
[2017-10-25] MEDS ORDERED: MAGN2400 PO (06:05)
[2017-10-25] MEDS ORDERED: PREN1TAB58 PO (06:06)
[2017-10-25] MEDS ORDERED: SULF1TAB24 PO (06:09)
[2017-10-25] MEDS ORDERED: TRAZ50TA15 PO (06:11)
[2017-10-25] MEDS ORDERED: IV NORMAL SALINE 1,000ML 1,000 ML IV SCH (06:40)
[2017-10-25] MEDS ORDERED: NALOXONE 0.4 MG/ML VIAL. ONE ×2 (06:44→06:50)
[2017-10-25] MEDS ORDERED: IV NORMAL SALINE 500ML 500 ML IV PRN (06:45)
[2017-10-25] MEDS ORDERED: 0.9 % SODIUM CHLORIDE 10 ML DISP.SYRIN. IV PRN (06:45)
[2017-10-25] MEDS ORDERED: ELECTROLYTE (NON-ICU) PROTOCOL MC PRN (06:45)
[2017-10-25] MEDS ORDERED: HEPARIN PF for SUB-Q USE 5,000 UNIT/0.5 ML VIAL. SQ SCH (07:00)
--- NOTE | 2017-10-25 07:07 | PDOC ---
PROGRESS NOTES Assessment I spoke to pt's DPOA and daughter Verena. She states she was unaware that pt was admitted to [facility]. I told her what has been going on, that pt is responsive only to sternal rub but that there is no sign of stroke at this point. Verena confirms that pt has leukemia and is a DNR, and that her doctor has actually discussed recently about possibly pursuing palliative care as her leukemia is getting worse. We discussed treatment options including pressors, and it was agreed that we would not pursue this treatment as pt's wish was to " naturally." We will continue IVF, monitoring, and abx. She has given me her email address and we will write her if she needs to call us today. Problems: Objective Vital Signs Date Time Temp Pulse Resp B/P (MAP) Pulse Ox O2 Delivery O2 Flow Rate FiO2 10/25/17 06:48 83/44 (57) 10/25/17 06:42 97.7 63 11 99 Simple Mask 2.0 Intake and Output 10/25/17 06:59 Intake Total 0 ml Balance 0 ml Intake Oral 0 ml Review of Relevant I have reviewed the following items nahum (where applicable) has been applied. Medications Current Medications Sodium Chloride (Normal Saline Flush) 3 ml PRN DAILY PRN IV AFTER MEDS AND BLOOD DRAWS; Start 10/25/17 at 06:45; Status UNV Sodium Chloride 1,000 ml @ 100 mls/hr Q10H IV ; Start 10/25/17 at 06:40; Status UNV Info 1 ea CONT PRN PRN MC SEE COMMENTS; Start 10/25/17 at 06:45; Status UNV Heparin Sodium (Porcine) 5,000 unit Q12H SQ ; Start 10/25/17 at 06:45; Status UNV Naloxone HCl (Narcan) 0.4 mg STK-MED ONCE .ROUTE ; Start 10/25/17 at 06:44; Stop 10/25/17 at 06:45; Status DC Sodium Chloride 500 ml @ 1,000 mls/hr PRN Q30MIN PRN IV SEE COMMENTS; Start 10/25/17 at 06:45; Status UNV Ceftriaxone Sodium 1 gm/ Sodium Chloride 50 ml @ 100 mls/hr Q24H IV ; Start at 06:45; Status UNV Naloxone HCl (Narcan) 0.4 mg STK-MED ONCE .ROUTE ; Start 10/25/17 at 06:50; Stop 10/25/17 at 06:51; Status DC Active Scripts Active Reported Trazodone Hcl 50 Mg Tablet 50 Mg PO QHS Bactrim Ds Tablet (Sulfamethoxazole/Trimethoprim) 1 Each Tablet 1 Each PO BID Vitamins ( Vits W-Ca,Fe,Fa(<1MG)) 1 Each Tablet 1 Each PO DAILY Milk Of Magnesia (Magnesium Hydroxide) 2,400 Mg/10 Ml Oral.susp 2,400 Mg PO PRN QHS PRN Analgesic [place] (Methyl Salicylate/Menthol) 28 Gm Oint...g. 1 Brie TP PRN QID PRN Mag-Al Plus Xs Suspension (Mag Hydrox/Al Hydrox/Simeth) 30 Ml Oral.susp 15 Ml PO PRN AFTMEALHC PRN Divalproex Sodium Er (Divalproex Sodium) 500 Mg Tab.er.24h 500 Mg PO QHS Vitamin D3 (Cholecalciferol (Vitamin D3)) 10,000 Unit Tablet 50,000 Unit PO WEEKLY Albuterol Sulfate Neb Soln (Albuterol Sulfate) 2.5 Mg/3 Ml Vial.neb 2.5 Mg NEB Q6HRS Fosamax (Alendronate Sodium) 70 Mg Tablet 70 Mg PO WEEKLY Voltaren (Diclofenac Sodium) 100 Gm Gel..gram. 4 Gm TP TID PRN Ondansetron Hcl 4 Mg Tablet 4 Mg PO PRN Q8HRS PRN Acetaminophen 500 Mg Tablet 1,000 Mg PO PRN Q8HRS PRN Oxycodone Hcl 5 Mg Tablet 2.5 Mg PO PRN Q6HRS PRN Ketorolac Tromethamine 5 Ml Drops 1 Drop EACHEYE QID PRN Movantik (Naloxegol Oxalate) 25 Mg Tablet 25 Mg PO PRN DAILY PRN Donepezil Hcl 5 Mg Tablet 10 Mg PO QHS Seroquel (Quetiapine Fumarate) 25 Mg Tablet 25 Mg PO QPM Oxycodone Hcl 5 Mg Tablet 2.5 Mg PO BID Symbicort 160-4.5 Mcg Inhaler (Budesonide/Formoterol Fumarate) 10.2 Gm Hfa.aer.ad 2 Puff IH BID Seroquel (Quetiapine Fumarate) 50 Mg Tablet 50 Mg PO QHS Cymbalta (Duloxetine Hcl) 30 Mg Capsule.dr 30 Mg PO QHS Clonazepam 0.5 Mg Tablet 0.25 Mg PO QHS Lyrica (Pregabalin) 50 Mg Capsule 50 Mg PO TID Entacapone 200 Mg Tablet 200 Mg PO TID Carbidopa-Levo 25-100 Mg Odt (Carbidopa/Levodopa) 1 Each Tab.rapdis 2 Tab PO TID Senna-S Tablet (Sennosides/Docusate Sodium) 1 Each Tablet 1 Tab PO BID Pantoprazole Sodium 40 Mg Tablet.dr 40 Mg PO BID Levetiracetam 500 Mg Tablet 250 Mg PO BID Seroquel (Quetiapine Fumarate) 25 Mg Tablet 12.5 Mg PO DAILY Vitamin B-12 (Cyanocobalamin (Vitamin B-12)) 1,000 Mcg Tablet 1,000 Mcg PO DAILY Calcium 600 + Vit D 200 Tablet (Calcium Carbonate/Vitamin D3) 1 Each Tablet 1 Tab PO DAILY Aspirin 81 Mg Tab.chew 81 Mg PO DAILY Vitals/I & O Vital Sign - Last 24 Hours 10/25/17 10/25/17 06:42 06:48 Temp 97.7 Pulse 63 Resp 11 B/P (MAP) 66/35 (45) 83/44 (57) Pulse Ox 99 O2 Delivery Simple Mask O2 Flow Rate 2.0 Intake and Output 10/24/17 10/24/17 10/25/17 14:59 22:59 06:59 Intake Total 0 ml Balance 0 ml JALEN SUNSHINE MD Oct 25, 2017 07:07
--- NOTE | 2017-10-25 07:54 | EKG ---
[address] [address] Test Date: 2017-10-25 Test Time: 06:22:53 Pat Name: QUINTIN STALLINGS Department: Room: ICU03 1 Gender: [employer] Supervisor: : 1945 Requested By: JALEN SUNSHINE Order Number: [id number] Reading MD: Jacky Perez MD Measurements Intervals [place] Rate: P: GA: QRS: QRSD: T: QT: QTc: Interpretive Statements UNCLEAR BASELINE SUSPECT SR NON-SPECIFIC ST/T CHANGES Electronically Signed On 10-29-2017 14:50:25 [employer] by Jacky Perez MD
--- NOTE | 2017-10-25 08:43 | RAD ---
Frontal view of the Chest 10/25/2017 8:40 AM Indication: sepsis Comparison: None Findings: Chronic appearing interstitial coarsening is noted. No focal consolidation or infiltrate is seen. There is no effusion or pneumothorax. Calcified granuloma in the right upper lung noted. Heart size appears to be normal. No acute bony changes are seen. Impression: No evidence of acute cardiopulmonary process.
--- NOTE | 2017-10-25 14:15 | PDOC1 ---
History of Present Illness Reason for Visit: Rapid response History of Present Illness Pt seen this morning (see previous notes) for low BP and being minimally responsive. She has since recovered, and her BP and mentation are at their baseline. Pt's labs were unremarkable, and I suspect that she may have been over-sedated. There is no evidence of sepsis. Pt is being transferred back to [facility], as there had been discussion regarding palliative care prior to her transferring here to the [facility] unit. She is a poor historian. Chief Complaint: Low BP Allergies: Coded Allergies: No Known Drug Allergies (Unverified , 10/23/17) Past Medical History Heme/Onc: Other (Leukemia) Psych: Schizophrenia Past Surgical History: No pertinent history Family History: No pertinent hx Past Social History Smoke: No Alcohol: none Drugs: None Lives: Correction Review of Systems Review Of Systems ROS unobtainable due to pt's mental condition. Allergies: Coded Allergies: No Known Drug Allergies (Unverified , 10/23/17) Medications Current Medications Sodium Chloride (Normal Saline Flush) 3 ml PRN DAILY PRN IV AFTER MEDS AND BLOOD DRAWS; Start 10/25/17 at 06:45 Sodium Chloride 1,000 ml @ 100 mls/hr Q10H IV Last administered on 10/25/17 08:50; Start 10/25/17 at 06:40 Info 1 ea CONT PRN PRN MC SEE COMMENTS; Start 10/25/17 at 06:45 Heparin Sodium (Porcine) 5,000 unit Q12H SQ Last administered on 10/25/17 08: 54; Start 10/25/17 at 07:00 Naloxone HCl (Narcan) 0.4 mg STK-MED ONCE .ROUTE Last administered on 06:44; Start 10/25/17 at 06:44; Stop 10/25/17 at 06:45; Status DC Sodium Chloride 500 ml @ 1,000 mls/hr PRN Q30MIN PRN IV SEE COMMENTS Last administered on 10/25/17 06:30; Start 10/25/17 at 06:45 Ceftriaxone Sodium 1 gm/ Sodium Chloride 50 ml @ 100 mls/hr Q24H IV Last administered on 10/25/17 08:36; Start 10/25/17 at 08:00 Naloxone HCl (Narcan) 0.4 mg STK-MED ONCE .ROUTE Last administered on t 06:50; Start 10/25/17 at 06:50; Stop 10/25/17 at 06:51; Status DC Active Scripts Active Reported Trazodone Hcl 50 Mg Tablet 50 Mg PO QHS Bactrim Ds Tablet (Sulfamethoxazole/Trimethoprim) 1 Each Tablet 1 Each PO BID Vitamins ( Vits W-Ca,Fe,Fa(<1MG)) 1 Each Tablet 1 Each PO DAILY Milk Of Magnesia (Magnesium Hydroxide) 2,400 Mg/10 Ml Oral.susp 2,400 Mg PO PRN QHS PRN Analgesic [place] (Methyl Salicylate/Menthol) 28 Gm Oint...g. 1 Brie TP PRN QID PRN Mag-Al Plus Xs Suspension (Mag Hydrox/Al Hydrox/Simeth) 30 Ml Oral.susp 15 Ml PO PRN AFTMEALHC PRN Divalproex Sodium Er (Divalproex Sodium) 500 Mg Tab.er.24h 500 Mg PO QHS Vitamin D3 (Cholecalciferol (Vitamin D3)) 10,000 Unit Tablet 50,000 Unit PO WEEKLY Albuterol Sulfate Neb Soln (Albuterol Sulfate) 2.5 Mg/3 Ml Vial.neb 2.5 Mg NEB Q6HRS Fosamax (Alendronate Sodium) 70 Mg Tablet 70 Mg PO WEEKLY Voltaren (Diclofenac Sodium) 100 Gm Gel..gram. 4 Gm TP TID PRN Ondansetron Hcl 4 Mg Tablet 4 Mg PO PRN Q8HRS PRN Acetaminophen 500 Mg Tablet 1,000 Mg PO PRN Q8HRS PRN Oxycodone Hcl 5 Mg Tablet 2.5 Mg PO PRN Q6HRS PRN Ketorolac Tromethamine 5 Ml Drops 1 Drop EACHEYE QID PRN Movantik (Naloxegol Oxalate) 25 Mg Tablet 25 Mg PO PRN DAILY PRN Donepezil Hcl 5 Mg Tablet 10 Mg PO QHS Seroquel (Quetiapine Fumarate) 25 Mg Tablet 25 Mg PO QPM Oxycodone Hcl 5 Mg Tablet 2.5 Mg PO BID Symbicort 160-4.5 Mcg Inhaler (Budesonide/Formoterol Fumarate) 10.2 Gm Hfa.aer.ad 2 Puff IH BID Seroquel (Quetiapine Fumarate) 50 Mg Tablet 50 Mg PO QHS Cymbalta (Duloxetine Hcl) 30 Mg Capsule.dr 30 Mg PO QHS Clonazepam 0.5 Mg Tablet 0.25 Mg PO QHS Lyrica (Pregabalin) 50 Mg Capsule 50 Mg PO TID Entacapone 200 Mg Tablet 200 Mg PO TID Carbidopa-Levo 25-100 Mg Odt (Carbidopa/Levodopa) 1 Each Tab.rapdis 2 Tab PO TID Senna-S Tablet (Sennosides/Docusate Sodium) 1 Each Tablet 1 Tab PO BID Pantoprazole Sodium 40 Mg Tablet.dr 40 Mg PO BID Levetiracetam 500 Mg Tablet 250 Mg PO BID Seroquel (Quetiapine Fumarate) 25 Mg Tablet 12.5 Mg PO DAILY Vitamin B-12 (Cyanocobalamin (Vitamin B-12)) 1,000 Mcg Tablet 1,000 Mcg PO DAILY Calcium 600 + Vit D 200 Tablet (Calcium Carbonate/Vitamin D3) 1 Each Tablet 1 Tab PO DAILY Aspirin 81 Mg Tab.chew 81 Mg PO DAILY Exam Vital Signs Vital Signs Date Time Temp Pulse Resp B/P (MAP) Pulse Ox O2 Delivery O2 Flow Rate FiO2 10/25/17 13:17 71 24 118/55 (76) 97 Room Air 10/25/17 11:47 97.7 2.0 General Appearance: Alert, Cooperative, No acute distress, Other (Oriented only to person) HEENT: Atraumatic, PERRLA, EOMI, Mucous membr. moist/pink Respiratory: Clear to auscultation, Normal air movement Heart: Regular rate, Normal S1, Normal S2, No murmurs Abdominal: Soft, No tenderness, No hepatospenomegaly, No masses Extremities: No edema Skin: No rashes Neuro: Normal speech, Strength at 5/5 X4 ext, Normal tone, Cranial nerves 3-12 NL Psych/Mental Status: Mental status NL (Baseline per her daughter) Assessment/Plan Assessment/Plan Pt has a hx of leukemia (that is worsening per report) as well as schizophrenia and dementia. SHe is being transferred back to [facility]. Transport via EMS. I see no evidence of infection on exam or labs. Urine culture was negative on admission. COURSE Allergies Coded Allergies Type Severity Reaction Last Updated Verified No Known Drug Allergies 10/23/17 No Current Medications Medications (Trade) Dose Ordered Sig/Wojciech Route PRN Reason Start Time Stop Time Status Last Admin Dose Admin Sodium Chloride (Normal Saline Flush) 3 ml PRN DAILY PRN IV AFTER MEDS AND BLOOD DRAWS 10/25/17 06:45 Sodium Chloride 1,000 ml @ 100 mls/hr Q10H IV 10/25/17 06:40 10/25/17 08:50 Info 1 ea CONT PRN PRN SEE COMMENTS 10/25/17 06:45 Heparin Sodium (Porcine) 5,000 unit Q12H SQ 10/25/17 07:00 10/25/17 08:54 Naloxone HCl (Narcan) 0.4 mg STK-MED ONCE .ROUTE 10/25/17 06:44 10/25/17 06:45 DC 10/25/17 06:44 Sodium Chloride 500 ml @ 1,000 mls/hr PRN Q30MIN PRN IV SEE COMMENTS 10/25/17 06:45 10/25/17 06:30 Ceftriaxone Sodium 1 gm/ Sodium Chloride 50 ml @ 100 mls/hr Q24H IV 10/25/17 08:00 10/25/17 08:36 Naloxone HCl (Narcan) 0.4 mg STK-MED ONCE .ROUTE 10/25/17 06:50 10/25/17 06:51 DC 10/25/17 06:50 Vital Signs Date Time Temp Pulse Resp B/P (MAP) Pulse Ox O2 Delivery O2 Flow Rate FiO2 10/25/17 13:17 71 24 118/55 (76) 97 Room Air 10/25/17 11:47 97.7 2.0 JALEN SUNSHINE MD Oct 25, 2017 14:15
--- NOTE | 2017-10-25 14:17 | DISCH ---
DISCHARGE ORDERS DISCHARGE DATE: Oct 25, 2017 FINAL DIAGNOSIS Lewy body dementia Schizophrenia Leukemia Hypotension (resolved) CONDITION AT DISCHARGE: Stable HOSPICE: Yes POST DISCHARGE ORDERS ACTIVITY ORDERS: Activity as tolerated DIET AFTER DISCHARGE: Regular FOLLOW-UP PHYSICIAN FOLLOW-UP: PCP JALEN SWEET MD Oct 25, 2017 14:17
--- NOTE | 2017-10-25 14:22 | PDOC3 ---
Discharge Summary Discharge Summary Date of Admission Date of Admission: Oct 25, 2017 at 06:00 Admitting Diagnosis Altered mental status Hypotension Dementia, Lewy body Schizophrenia Date of Discharge: Oct 25, 2017 Discharge Diagnosis Altered mental status Hypotension Dementia, Lewy body Schizophrenia Hospital Course Pt was admitted from [facility] due to being unresponsive and having low BP. She has spontaneously recovered. She does not have evidence of sepsis or UTI. She was treated empirically with IVF and abx, but given her initial presentation, I suspect that she was simply in a deep sleep. She is back to her baseline at this time. Condition at Discharge: Stable Home Meds Reported Medications Trazodone Hcl (TRAZODONE HCL) 50 Mg Tablet, 50 MG PO QHS for INSOMNIA, MARCH REPEAT X1, TAB 10/25/17 Sulfamethoxazole/Trimethoprim (BACTRIM DS TABLET) 1 Each Tablet, 1 EACH PO BID for infection, TAB 10/25/17 Vits W-Ca,Fe,Fa(<1MG) ( VITAMINS) 1 Each Tablet, 1 EACH PO DAILY for supplement, TAB 10/25/17 Magnesium Hydroxide (MILK OF MAGNESIA) 2,400 Mg/10 Ml Oral.susp, 2400 MG PO PRN QHS Y for CONSTIPATION, LIQUID 10/25/17 Methyl Salicylate/Menthol (Analgesic [place]) 28 Gm Oint...g., 1 BRIE TP PRN QID Y for MUSCLE PAIN, MISC 10/25/17 Mag Hydrox/Al Hydrox/Simeth (MAG-AL PLUS XS SUSPENSION) 30 Ml Oral.susp, 15 ML PO PRN AFTMEALHC Y for DYSPEPSIA, LIQUID 10/25/17 Divalproex Sodium (DIVALPROEX SODIUM ER) 500 Mg Tab.er.24h, 500 MG PO QHS for mood stabilizer, TAB.SR 10/25/17 Cholecalciferol (Vitamin D3) (Vitamin D3) 10,000 Unit Tablet, 36337 UNIT PO WEEKLY for supplement, TAB 10/25/17 Albuterol Sulfate (ALBUTEROL SULFATE NEB SOLN ) 2.5 Mg/3 Ml Vial.neb, 2.5 MG NEB Q6HRS for FOR ASTHMA, EACH 0 Refills 10/25/17 Alendronate Sodium (FOSAMAX) 70 Mg Tablet, 70 MG PO WEEKLY for osteoporosis, TAB 10/25/17 Diclofenac Sodium (VOLTAREN) 100 Gm Gel..gram., 4 GM TP TID Y for Knee Pain, #1 EACH 2 Refills 10/23/17 Ondansetron Hcl (ONDANSETRON HCL) 4 Mg Tablet, 4 MG PO PRN Q8HRS Y for NAUSEA/ VOMITING, TAB 10/23/17 Acetaminophen (ACETAMINOPHEN) 500 Mg Tablet, 1000 MG PO PRN Q8HRS Y for PAIN, TAB 10/23/17 Oxycodone Hcl (OXYCODONE HCL) 5 Mg Tablet, 2.5 MG PO PRN Q6HRS Y for PAIN, TAB 10/23/17 Ketorolac Tromethamine (KETOROLAC TROMETHAMINE) 5 Ml Drops, 1 DROP EACHEYE QID Y for ITCHING, #5 ML 10/23/17 Naloxegol Oxalate (Movantik) 25 Mg Tablet, 25 MG PO PRN DAILY Y for CONSTIPATION , TAB 10/23/17 Donepezil Hcl (DONEPEZIL HCL) 5 Mg Tablet, 10 MG PO QHS for Dementia, TAB 10/23/17 Quetiapine Fumarate (SEROQUEL) 25 Mg Tablet, 25 MG PO QPM for PSYCHOSIS, TAB 10/23/17 Oxycodone Hcl (OXYCODONE HCL) 5 Mg Tablet, 2.5 MG PO BID for PAIN, TAB 10/23/17 Budesonide/Formoterol Fumarate (SYMBICORT 160-4.5 MCG INHALER) 10.2 Gm Hfa.aer.ad, 2 PUFF IH BID for COPD, INHALER 10/23/17 Quetiapine Fumarate (SEROQUEL) 50 Mg Tablet, 50 MG PO QHS for Psychosis, TAB 10/23/17 Duloxetine Hcl (CYMBALTA) 30 Mg Capsule.dr, 30 MG PO QHS for Depression, CAP 10/23/17 Clonazepam (CLONAZEPAM) 0.5 Mg Tablet, 0.25 MG PO QHS for ANXIETY, TAB 10/23/17 Pregabalin (LYRICA) 50 Mg Capsule, 50 MG PO TID for Neuropathy, CAP 10/23/17 Entacapone (ENTACAPONE) 200 Mg Tablet, 200 MG PO TID for Parkinson's Disease, TAB 10/23/17 Carbidopa/Levodopa (CARBIDOPA-LEVO 25-100 MG ODT) 1 Each Tab.rapdis, 2 TAB PO TID for Parkinson's Disease, TAB 10/23/17 Sennosides/Docusate Sodium (SENNA-S TABLET) 1 Each Tablet, 1 TAB PO BID for CONSTIPATION, TAB 10/23/17 Pantoprazole Sodium (PANTOPRAZOLE SODIUM) 40 Mg Tablet.dr, 40 MG PO BID for GERD , TAB 10/23/17 Levetiracetam (LEVETIRACETAM) 500 Mg Tablet, 250 MG PO BID for Seizure Disorder , TAB 10/23/17 Quetiapine Fumarate (SEROQUEL) 25 Mg Tablet, 12.5 MG PO DAILY for PSYCHOSIS, TAB 10/23/17 Cyanocobalamin (Vitamin B-12) (VITAMIN B-12) 1,000 Mcg Tablet, 1000 MCG PO DAILY for Supplement, TAB 10/23/17 Calcium Carbonate/Vitamin D3 (CALCIUM 600 + VIT D 200 TABLET) 1 Each Tablet, 1 TAB PO DAILY for Supplement, TAB 10/23/17 Aspirin (ASPIRIN) 81 Mg Tab.chew, 81 MG PO DAILY for Prevention, TAB 10/23/17 Discontinued Reported Medications Albuterol Sulfate (ALBUTEROL SULFATE NEB SOLN) 1.25 Mg/3 Ml Vial.neb, 1.25 MG NEB for FOR ASTHMA, EACH 0 Refills 10/25/17 Lorazepam (LORAZEPAM) 2 Mg/1 Ml Vial, 0.5 MG IM PRN Q4HRS Y for ANXIETY / AGITATION, EACH 10/23/17 Clonazepam (CLONAZEPAM) 0.5 Mg Tablet, 0.25 MG PO PRN DAILY Y for ANXIETY / AGITATION, TAB 10/23/17 Risedronate Sodium (ACTONEL) 35 Mg Tablet, 35 MG PO QMonday for Supplement, TAB 10/23/17 Inpatient Meds Current Medications Sodium Chloride (Normal Saline Flush) 3 ml PRN DAILY PRN IV AFTER MEDS AND BLOOD DRAWS; Start 10/25/17 at 06:45 Sodium Chloride 1,000 ml @ 100 mls/hr Q10H IV Last administered on 10/25/17t 08:50; Start 10/25/17 at 06:40 Info 1 ea CONT PRN PRN MC SEE COMMENTS; Start 10/25/17 at 06:45 Heparin Sodium (Porcine) 5,000 unit Q12H SQ Last administered on 10/25/17t 08: 54; Start 10/25/17 at 07:00 Naloxone HCl (Narcan) 0.4 mg STK-MED ONCE .ROUTE Last administered on 06:44; Start 10/25/17 at 06:44; Stop 10/25/17 at 06:45; Status DC Sodium Chloride 500 ml @ 1,000 mls/hr PRN Q30MIN PRN IV SEE COMMENTS Last administered on 10/25/17 06:30; Start 10/25/17 at 06:45 Ceftriaxone Sodium 1 gm/ Sodium Chloride 50 ml @ 100 mls/hr Q24H IV Last administered on 10/25/17 08:36; Start 10/25/17 at 08:00 Naloxone HCl (Narcan) 0.4 mg STK-MED ONCE .ROUTE Last administered on 06:50; Start 10/25/17 at 06:50; Stop 10/25/17 at 06:51; Status DC Active Scripts Active Reported Trazodone Hcl 50 Mg Tablet 50 Mg PO QHS Bactrim Ds Tablet (Sulfamethoxazole/Trimethoprim) 1 Each Tablet 1 Each PO BID Vitamins ( Vits W-Ca,Fe,Fa(<1MG)) 1 Each Tablet 1 Each PO DAILY Milk Of Magnesia (Magnesium Hydroxide) 2,400 Mg/10 Ml Oral.susp 2,400 Mg PO PRN QHS PRN Analgesic [place] (Methyl Salicylate/Menthol) 28 Gm Oint...g. 1 Brie TP PRN QID PRN Mag-Al Plus Xs Suspension (Mag Hydrox/Al Hydrox/Simeth) 30 Ml Oral.susp 15 Ml PO PRN AFTMEALHC PRN Divalproex Sodium Er (Divalproex Sodium) 500 Mg Tab.er.24h 500 Mg PO QHS Vitamin D3 (Cholecalciferol (Vitamin D3)) 10,000 Unit Tablet 50,000 Unit PO WEEKLY Albuterol Sulfate Neb Soln (Albuterol Sulfate) 2.5 Mg/3 Ml Vial.neb 2.5 Mg NEB Q6HRS Fosamax (Alendronate Sodium) 70 Mg Tablet 70 Mg PO WEEKLY Voltaren (Diclofenac Sodium) 100 Gm Gel..gram. 4 Gm TP TID PRN Ondansetron Hcl 4 Mg Tablet 4 Mg PO PRN Q8HRS PRN Acetaminophen 500 Mg Tablet 1,000 Mg PO PRN Q8HRS PRN Oxycodone Hcl 5 Mg Tablet 2.5 Mg PO PRN Q6HRS PRN Ketorolac Tromethamine 5 Ml Drops 1 Drop EACHEYE QID PRN Movantik (Naloxegol Oxalate) 25 Mg Tablet 25 Mg PO PRN DAILY PRN Donepezil Hcl 5 Mg Tablet 10 Mg PO QHS Seroquel (Quetiapine Fumarate) 25 Mg Tablet 25 Mg PO QPM Oxycodone Hcl 5 Mg Tablet 2.5 Mg PO BID Symbicort 160-4.5 Mcg Inhaler (Budesonide/Formoterol Fumarate) 10.2 Gm Hfa.aer.ad 2 Puff IH BID Seroquel (Quetiapine Fumarate) 50 Mg Tablet 50 Mg PO QHS Cymbalta (Duloxetine Hcl) 30 Mg Capsule.dr 30 Mg PO QHS Clonazepam 0.5 Mg Tablet 0.25 Mg PO QHS Lyrica (Pregabalin) 50 Mg Capsule 50 Mg PO TID Entacapone 200 Mg Tablet 200 Mg PO TID Carbidopa-Levo 25-100 Mg Odt (Carbidopa/Levodopa) 1 Each Tab.rapdis 2 Tab PO TID Senna-S Tablet (Sennosides/Docusate Sodium) 1 Each Tablet 1 Tab PO BID Pantoprazole Sodium 40 Mg Tablet.dr 40 Mg PO BID Levetiracetam 500 Mg Tablet 250 Mg PO BID Seroquel (Quetiapine Fumarate) 25 Mg Tablet 12.5 Mg PO DAILY Vitamin B-12 (Cyanocobalamin (Vitamin B-12)) 1,000 Mcg Tablet 1,000 Mcg PO DAILY Calcium 600 + Vit D 200 Tablet (Calcium Carbonate/Vitamin D3) 1 Each Tablet 1 Tab PO DAILY Aspirin 81 Mg Tab.chew 81 Mg PO DAILY Activity: as tolerated Diet: Regular Follow-up Plan PCP JALEN SWEET MD Oct 25, 2017 14:22
== END 2017-10-25 15:02 | disposition hospice, inpatient (51) | DRG 315 ==
LOC: ICU 06:00
PROVIDERS: ADMIT Family Medicine; ATTEND Family Medicine
DX: I95.9 Hypotension, unspecified (principal); C95.90 Leukemia, unspecified not having achieved remission; G20 Parkinson's disease; F20.9 Schizophrenia, unspecified; G40.909 Epilepsy, unspecified, not intractable, without status epilepticus; J44.9 Chronic obstructive pulmonary disease, unspecified; K21.9 Gastro-esophageal reflux disease without esophagitis; K59.00 Constipation, unspecified; M81.0 Age-related osteoporosis without current pathological fracture; F02.80 Dementia in other diseases classified elsewhere, unspecified severity, without behavioral disturbance, psychotic disturbance, mood disturbance, and anxiety; F32.9 Major depressive disorder, single episode, unspecified; F41.9 Anxiety disorder, unspecified; G47.00 Insomnia, unspecified; Z66 Do not resuscitate; Z79.51 Long term (current) use of inhaled steroids; Z79.82 Long term (current) use of aspirin; Z79.83 Long term (current) use of bisphosphonates; Z79.899 Other long term (current) drug therapy
CPT/HCPCS: 71010; 87040; 93005; J0696; J2310; J7040; J7030